=== PATIENT | male | born 1950 | race Caucasian/White ===

== ENCOUNTER 2018-02-14 23:57 | Observation (INO) | payer MEDICARE, SELFPAY ==
[2018-02-14 23:58] VITALS: BP 165/94; PULSE 82; RESP 12; TEMP 36.8; O2SAT 98; BMI 27.4
--- NOTE | 2018-02-14 23:59 | ED.RN ---
CALLED FOR EKG PER RN REQUEST, PULLED OLD EKG'S FOR
[2018-02-15] VITALS (12 sets, daily range): BP systolic 112–159; BP diastolic 70–90; PULSE 56–96; RESP 14–18; TEMP 36.4–36.8; O2SAT 96–100; BMI 26.8
--- NOTE | 2018-02-15 00:16 | RAD_ITS ---
STUDY: X-RAY CHEST REASON FOR EXAM: Male, 67 years old. Chest pain for few days. TECHNIQUE: Single AP portable view of the chest. COMPARISON: 07/29/2015. FINDINGS: No focal infiltrate is seen. There is no demonstrated pleural abnormality. Normal size heart. Normal mediastinum and aurea. Normal visualized pulmonary arteries. There is atherosclerotic tortuosity of the aortic arch and descending thoracic aorta. The thoracic spine is somewhat obscured. Normal visualized ribs, clavicles, and shoulders. There is no demonstrated abnormality of the visualized soft tissue structures of the upper abdomen. RAD/Chest 1 View (Portable) IMPRESSION: No active pulmonary disease. Electronically Signed: Naresh Farris MD at 0:48 EDT Tel , Service support ,
--- NOTE | 2018-02-15 00:16 | EKG12_ITS ---
Test Reason : CP Blood Pressure : / mmHG Vent. Rate : 085 BPM Atrial Rate : 085 BPM P-R Int : 188 ms QRS Dur : 086 ms QT Int : 370 ms P-R-T Axes : 066 008 039 degrees QTc Int : 440 ms Normal sinus rhythm Normal ECG Confirmed by DURAN CORNEJO, HALLIE ([id number]), book editor KAIDEN LUQUE ([id number]) on 02/19/2018 2:13:23 PM Referred By: NETO Confirmed By:HALLIE GARZON MD
[2018-02-15 00:27] LABS: Absolute Lymphocyte Count 1.98 X10^3/ul (0.83-4.51); Absolute Neutrophil Count 3.9 X10^3/uL (2.0-7.7); Basophil# 0.03 X10^3/uL; Basophil% 0.5 % (0-1); Eosinophil# 0.09 X10^3/uL; Eosinophils% 1.4 % (0-5); Hematocrit 40.5 % (40-54); Hemoglobin 14.2 g/dl (13.0-16.5); Lymphocyte # 1.98 X10^3/ul (4.0); Lymphocyte % 30.1 % (19-41); Mean Corp Hgb Conc 35.1 g/gl (32-36); Mean Corpuscular Hgb 29.5 pg (27.0-32.0); Mean Platelet Vol. 10.2 fl (6.2-12.0); Monocyte# 0.59 X10^3/uL; Neutrophil # 3.88 X10^3/uL (2.7-7.7); Neutrophil % 58.8 % (47-70); Platelet Count 232 K/mm3 (150-450); RBC Distribution Width CV 13.3 % (11.6-14.6); RBC Distribution Width SD 40.4 fl (35.1-43.9); Red Blood Count 4.82 M/mm3 (4.6-6.2); White Blood Count 6.6 K/mm3 (4.4-11.0)
[2018-02-15 00:28] LABS: POSITIVE COUNT NO; POSITIVE DIFFERENTIAL NO; POSITIVE MORPHOLOGY NO
[2018-02-15] MEDS: Aspirin 81 MG TAB.CHEW 324 MG PO (00:28)
[2018-02-15 00:39] LABS: Anion Gap 7 (5-15); BUN 16 mg/dL (7-18); Calcium,Total 9.1 mg/dL (8.5-10.1); Chloride 103 mmol/L (98-107); Creatinine, Serum 1.23 mg/dL (0.70-1.30); EST Glomerular Filtration Rate 63 mL/min (>60); Est Glom Filt Rate - Afr Amer 76 mL/min (>60); Estimated Creatinine Clearance 70.61 ml/min; Glucose 119 mg/dL (74-106); Potassium 3.5 mmol/L (3.5-5.1); Sodium Level 141 mmol/L (136-145)
--- NOTE | 2018-02-15 01:36 | EKG12_ITS ---
Test Reason : REPEAT Blood Pressure : / mmHG Vent. Rate : 072 BPM Atrial Rate : 072 BPM P-R Int : 186 ms QRS Dur : 096 ms QT Int : 394 ms P-R-T Axes : 040 002 013 degrees QTc Int : 431 ms Normal sinus rhythm Inferior infarct , age undetermined Abnormal ECG Confirmed by DURAN CORNEJO, HALLIE ([id number]), mapping editor KAIDEN LUUQE ([id number]) on 02/19/2018 2:13:53 PM Referred By: NETO Confirmed By:HALLIE GARZON MD
[2018-02-15] MEDS: Nitroglycerin Oint 1 INCH PACKET 0.5 INCH TRANSDERM. (01:58)
--- NOTE | 2018-02-15 02:04 | ED.VISSUMM ---
- ER Visit Summary Date of Service: 02/15/18 Chief Complaint: Chest pain History of Present Illness: The patient is a 67 M who presents with chest pain. Symptoms began during a stressful event involving his son and the police. He has had constant pain for 2-3 hours. He describes this as pressure-like on the left side of his chest radiating down his left arm. This is associated with nausea and shortness of breath. No exacerbating or relieving factors. He does note that he has been having intermittent chest pain for a couple of weeks. Today was worse. He does have a known history of coronary artery disease but states that he had only 40-50% blockages. He has not had any intervention no stents or bypass. No history of myocardial infarction. Physical Examination: Afebrile vitals are stable Moist mucous membranes Heart regular rate and rhythm Lungs clear Abdomen soft 2+ radial pulses symmetric No edema Test Results: EKG shows normal sinus rhythm at a rate of 85 with PVCs. Repeat EKG unchanged. CBC BMP unremarkable and troponin negative. Chest x-ray shows no acute process. Emergency Department Course and Treatment: Patient was given aspirin and sublingual nitroglycerin. This improved his pain from 8 out of 10 to minimal at only 1 out of 10. Therefore we also ordered topical Nitropaste. Patient discussed with the hospitalist will be admitted. Treatment Plan: [] Disposition: Admit Impression: Chest pain This note was generated with [employer] dictation software. It may contain incorrect words, spelling, and punctuation that were not noted in review of the chart prior to signing ED Disposition - Plan for ED Patient: Chief Complaint: Chest Pain [facility] [Primary Care Provider] -
--- NOTE | 2018-02-15 02:06 | PCM.HP.STD ---
Problem List (1) Benign prostatic hyperplasia Status: Chronic (2) Chronic back pain Status: Chronic (3) mild CAD s/p cath Status: Chronic (4) Osteoarthritis Status: Chronic (5) Gastroesophageal reflux disease Status: Chronic (6) Benign essential hypertension Status: Chronic (7) Asthma Status: Chronic History of Present Illness Date of Admission: 02/15/18 Chief Complaint: Chest pain. The patient is a 67 year old M with past medical history as mentioned above presented to the emergency room because of chest pain. His symptoms started few hours ago when he was sitting on his couch, started having left-sided chest pain, pressure-like pain, 8 out of 10 in severity, radiates to his left side of the neck, associated with mild shortness of breath and nausea, partially relieved with nitroglycerin and without aggravating factors. He mentioned that over the last couple days, he has been having left upper extremity pain. He denied dizziness or lightheadedness. Denies syncope or presyncope. According to the patient, he had a history of cardiac catheterization 4 years ago at outside facility and he was informed that he has 40% narrowing in 1 of his coronaries, no documents available. In the emergency room, his vital signs are stable. His routine blood work was unremarkable. His EKG revealed normal sinus rhythm, normal [place] interval, normal QRS and QTC, no acute ischemic changes. His troponin is negative. Chest x-ray showed no acute infiltrate, consolidation or effusion. He is being admitted for chest pain for evaluation and he is on high risk patient. Past Medical History Past Medical History (Chronic Problems): Chronic Problems Benign prostatic hyperplasia (Chronic) Chronic back pain (Chronic) mild CAD s/p cath (Chronic) Osteoarthritis (Chronic) Gastroesophageal reflux disease (Chronic) Benign essential hypertension (Chronic) Asthma (Chronic) Allergies iodine Allergy (Verified 02/15/18 00:00) Unknown Home Medications: Ambulatory Orders Medication Instructions Recorded Albuterol Inhaler [Ventolin Hfa] 1 - 2 puff INHALATION Q6H PRN PRN 06/20/13 Hydrochlorothiazide [Hctz] 25 mg PO DAILY 06/20/13 Omeprazole [Prilosec] 40 mg PO DAILY 06/20/13 Potassium Chloride [K-Dur] 20 meq PO DAILY 06/20/13 Tamsulosin HCl [Flomax] 0.8 mg PO QHS 06/20/13 Amlodipine [Norvasc] 10 mg PO DAILY #60 tablet 10/24/13 Aspirin [Aspirin, Baby] 81 mg PO DAILY@0800 10/24/13 Pravastatin [Pravachol] 40 mg PO DAILY 10/24/13 Montelukast [Singulair] 10 mg PO DAILY 02/10/15 Pregabalin [Lyrica] 150 mg PO BID 02/10/15 Metoprolol Tartrate [Lopressor 12.5 mg PO BID 02/11/15 (beta eriberto)] Budesonide/Formoterol 160/4.5 2 puff INHALATION BID 07/29/15 [Symbicort 160/4.5 Mcg Inhaler (SP)] Loratadine [Claritin] 10 mg PO DAILY 07/29/15 Finasteride [Proscar] 5 mg PO DAILY 02/15/18 Guaifenesin 400 mg PO Q4H PRN PRN 02/15/18 Meloxicam 7.5 mg PO BID 02/15/18 Tiotropium [place] [Spiriva 18 MCG] 2 puff INHALATION DAILY 02/15/18 traMADol [Ultram (G)] 50 mg PO Q8H PRN PRN 02/15/18 Surgical History: total knee arthroplasty, - - Neck surgery x 2, R elbow surgery and R shoulder surgery. Psychiatric History: No pertinent psych hx Lives: Spouse/ Significant Other Smoking Status: Never smoker Alcohol: None Drugs: None - *Family History Maternal History Items: Heart Disease, Hypertension Paternal History Items: Cancer, Heart Disease Sibling History Items: Heart Disease - CABG Review of Systems Constitutional: Denies: Anorexia, Chills, Fever, Weakness Eyes: Denies: Blurred vision, Double vision, Drainage, Redness HEENT: Denies: Difficulty Hearing, Ear Pain, Eye Pain, Nasal Congestion, Sore Throat Cardiovascular: Reports: Chest Pain, Chest Pressure. Denies: Edema, Heaviness, Light Headedness, Orthopnea, Paroxysmal Noc. Dyspnea, Syncope Respiratory: Reports: Shortness of Breath. Denies: Cough, Pleuritic Pain, Sputum production, Wheezing Gastrointestinal: Reports: Nausea. Denies: Abdominal Pain, Constipation, Diarrhea, Vomiting Genitourinary: Denies: Dysuria, Frequency, Hematuria Musculoskeletal: Denies: Arm Pain, Back Pain, Foot Pain Skin: Denies: Dryness, Rash Neurological: Denies: Balance problems, Double vision, Change in Speech, Slurred speech, Confusion, Focal weakness, Incoordination, Numbness Psychiatric: Denies: Anxiety, Depression Endocrine: Denies: Change in Body Habitus, Polydipsia VTE Information - Inpt Only VTE Present on Admission: No VTE Mechan Device Prophylaxis: None VTE Pharm Prophylaxis ordered?: Yes - Physical Exam General: Alert, Oriented x3, Cooperative, No apparent distress HEENT: Atraumatic, PERRLA, EOMI, Normocephalic Oral: Moist Mucosa, No Gingival or Mucosal Lesions/ Ulcerations Neck: Supple, No JVD, Negative Carotid Bruits, Trachea Midline, Thyroid Normal Size and Texture Lungs: Clear to auscultation, No rhonchi, No wheeze, No rales, Diminished Cardiovascular: Regular rate, Regular Rhythm, Normal S1, Normal S2, No murmurs Abdomen: Bowel Sounds Present, Soft, Non Tender, Non-Distended, No Hepato-splenomegaly Extremities: No clubbing, No cyanosis, No edema Skin: No rashes, No breakdown Lymphatic: No Cervical, Supraclavicular, or Inguinal Adenopathy Neurological: Cranial nerves II-XII grossly intact, Motor Exam 5/5 strength throughout Psych/Mental Status: Normal Affect, Appropriate, Alert and oriented to time, place, person, mood and affect Vital Signs Temp Pulse Resp BP Pulse Ox 98.2 F 67 14 122/79 H 96 02/14/18 23:58 02/15/18 02:01 02/15/18 02:01 02/15/18 02:01 02/15/18 02:01 Oxygen Flow Rate (L/min) 2 Oxygen Delivery Method Nasal Cannula Weight: 219 lb 9.286 oz Body Mass Index (BMI) 27.4 Finger Stick Blood Glucose 113 Laboratory Tests Past 24 Hrs 02/15/18 02/15/18 00:05 00:05 WBC 6.6 RBC 4.82 Hgb 14.2 Hct 40.5 MCV 84.0 MCH 29.5 MCHC 35.1 RDW 13.3 RDW Differential 40.4 Plt Count 232 MPV 10.2 Immature Gran % (Auto) 0.200 Neut % (Auto) 58.8 Lymph % (Auto) 30.1 [place] % (Auto) 9.0 Eos % (Auto) 1.4 Baso % (Auto) 0.5 Absolute Neuts (auto) 3.9 Absolute Lymphs (auto) 1.98 Total Counted Not Reportable Sodium 141 Potassium 3.5 Chloride 103 Carbon Dioxide 31.0 Anion Gap 7 BUN 16 Creatinine 1.23 Estim Creat Clear Calc 70.61 Est GFR (MDRD) Af Amer 76 Est GFR (MDRD) Non-Af 63 BUN/Creatinine Ratio 13.0 Glucose 119 H Calcium 9.1 Troponin I < 0.015 Clinical Impression(s) from Imaging Studies Chest X-Ray 02/15/18 00:16 IMPRESSION: No active pulmonary disease. Electronically Signed: Naresh Farris MD at 0:48 EDT Tel , Service support , Assessment/Plan This is a 67 years old male patient presented to the emergency room because of chest pain and he is being admitted for evaluation. #1 chest pain: It is typical chest pain, high-risk patient. Risk factors are history of CAD without interventions, hypertension, hyperlipidemia. His initial EKG was unremarkable, no acute ischemic changes. Troponin is negative. Chest x-ray without acute findings. Vital signs are stable. Plan: Admit to PCU for observation, cardiac monitoring, serial cardiac enzymes, repeat EKG tomorrow morning, continue nitroglycerin patch, IV morphine as needed for pain, IV fluids, nuclear stress test tomorrow morning if cardiac enzymes are negative, continue aspirin, metoprolol and statins. #2 CAD: Without history of interventions, no stents or bypass surgery. Plan as above, continue aspirin, statins and beta blockers. #3 hypertension: Blood pressure stable, continue Norvasc, HCTZ and metoprolol. #4 hyperlipidemia: Continue statins. #5 benign prostatic hypertrophy: Continue Flomax and Proscar. #6 asthma/COPD: Clinically stable, start albuterol nebulizer as needed, continue Symbicort and Spiriva #7 chronic back pain: Continue Lyrica and as needed tramadol. #8 DVT prophylaxis: Subcu Lovenox. This note was generated with [employer] software. It may contain incorrect words, spelling, and punctuation that were not noted in checking the note before signing. Code Visit OBSV E&M: 83233 Initial observation care L3
--- NOTE | 2018-02-15 02:10 | HP.PCM_ITS ---
Problem List (1) Benign prostatic hyperplasia Status: Chronic (2) Chronic back pain Status: Chronic (3) mild CAD s/p cath Status: Chronic (4) Osteoarthritis Status: Chronic (5) Gastroesophageal reflux disease Status: Chronic (6) Benign essential hypertension Status: Chronic (7) Asthma Status: Chronic History of Present Illness Date of Admission: 02/15/18 Chief Complaint: Chest pain. The patient is a 67 year old M with past medical history as mentioned above presented to the emergency room because of chest pain. His symptoms started few hours ago when he was sitting on his couch, started having left-sided chest pain, pressure-like pain, 8 out of 10 in severity, radiates to his left side of the neck, associated with mild shortness of breath and nausea, partially relieved with nitroglycerin and without aggravating factors. He mentioned that over the last couple days, he has been having left upper extremity pain. He denied dizziness or lightheadedness. Denies syncope or presyncope. According to the patient, he had a history of cardiac catheterization 4 years ago at outside facility and he was informed that he has 40% narrowing in 1 of his coronaries, no documents available. In the emergency room, his vital signs are stable. His routine blood work was unremarkable. His EKG revealed normal sinus rhythm, normal [place] interval, normal QRS and QTC, no acute ischemic changes. His troponin is negative. Chest x-ray showed no acute infiltrate, consolidation or effusion. He is being admitted for chest pain for evaluation and he is on high risk patient. Past Medical History Past Medical History (Chronic Problems): Chronic Problems Benign prostatic hyperplasia (Chronic) Chronic back pain (Chronic) mild CAD s/p cath (Chronic) Osteoarthritis (Chronic) Gastroesophageal reflux disease (Chronic) Benign essential hypertension (Chronic) Asthma (Chronic) Allergies iodine Allergy (Verified 02/15/18 00:00) Unknown Home Medications: Ambulatory Orders Medication Instructions Recorded Albuterol Inhaler [Ventolin Hfa] 1 - 2 puff INHALATION Q6H PRN PRN 06/20/13 Hydrochlorothiazide [Hctz] 25 mg PO DAILY 06/20/13 Omeprazole [Prilosec] 40 mg PO DAILY 06/20/13 Potassium Chloride [K-Dur] 20 meq PO DAILY 06/20/13 Tamsulosin HCl [Flomax] 0.8 mg PO QHS 06/20/13 Amlodipine [Norvasc] 10 mg PO DAILY #60 tablet 10/24/13 Aspirin [Aspirin, Baby] 81 mg PO DAILY@0800 10/24/13 Pravastatin [Pravachol] 40 mg PO DAILY 10/24/13 Montelukast [Singulair] 10 mg PO DAILY 02/10/15 Pregabalin [Lyrica] 150 mg PO BID 02/10/15 Metoprolol Tartrate [Lopressor 12.5 mg PO BID 02/11/15 (beta eriberto)] Budesonide/Formoterol 160/4.5 2 puff INHALATION BID 07/29/15 [Symbicort 160/4.5 Mcg Inhaler (SP)] Loratadine [Claritin] 10 mg PO DAILY 07/29/15 Finasteride [Proscar] 5 mg PO DAILY 02/15/18 Guaifenesin 400 mg PO Q4H PRN PRN 02/15/18 Meloxicam 7.5 mg PO BID 02/15/18 Tiotropium [place] [Spiriva 18 MCG] 2 puff INHALATION DAILY 02/15/18 traMADol [Ultram (G)] 50 mg PO Q8H PRN PRN 02/15/18 Surgical History: total knee arthroplasty, - - Neck surgery x 2, R elbow surgery and R shoulder surgery. Psychiatric History: No pertinent psych hx Lives: Spouse/ Significant Other Smoking Status: Never smoker Alcohol: None Drugs: None - *Family History Maternal History Items: Heart Disease, Hypertension Paternal History Items: Cancer, Heart Disease Sibling History Items: Heart Disease - CABG Review of Systems Constitutional: Denies: Anorexia, Chills, Fever, Weakness Eyes: Denies: Blurred vision, Double vision, Drainage, Redness HEENT: Denies: Difficulty Hearing, Ear Pain, Eye Pain, Nasal Congestion, Sore Throat Cardiovascular: Reports: Chest Pain, Chest Pressure. Denies: Edema, Heaviness, Light Headedness, Orthopnea, Paroxysmal Noc. Dyspnea, Syncope Respiratory: Reports: Shortness of Breath. Denies: Cough, Pleuritic Pain, Sputum production, Wheezing Gastrointestinal: Reports: Nausea. Denies: Abdominal Pain, Constipation, Diarrhea, Vomiting Genitourinary: Denies: Dysuria, Frequency, Hematuria Musculoskeletal: Denies: Arm Pain, Back Pain, Foot Pain Skin: Denies: Dryness, Rash Neurological: Denies: Balance problems, Double vision, Change in Speech, Slurred speech, Confusion, Focal weakness, Incoordination, Numbness Psychiatric: Denies: Anxiety, Depression Endocrine: Denies: Change in Body Habitus, Polydipsia VTE Information - Inpt Only VTE Present on Admission: No VTE Mechan Device Prophylaxis: None VTE Pharm Prophylaxis ordered?: Yes - Physical Exam General: Alert, Oriented x3, Cooperative, No apparent distress HEENT: Atraumatic, PERRLA, EOMI, Normocephalic Oral: Moist Mucosa, No Gingival or Mucosal Lesions/ Ulcerations Neck: Supple, No JVD, Negative Carotid Bruits, Trachea Midline, Thyroid Normal Size and Texture Lungs: Clear to auscultation, No rhonchi, No wheeze, No rales, Diminished Cardiovascular: Regular rate, Regular Rhythm, Normal S1, Normal S2, No murmurs Abdomen: Bowel Sounds Present, Soft, Non Tender, Non-Distended, No Hepato- splenomegaly Extremities: No clubbing, No cyanosis, No edema Skin: No rashes, No breakdown Lymphatic: No Cervical, Supraclavicular, or Inguinal Adenopathy Neurological: Cranial nerves II-XII grossly intact, Motor Exam 5/5 strength throughout Psych/Mental Status: Normal Affect, Appropriate, Alert and oriented to time, place, person, mood and affect Vital Signs Temp Pulse Resp BP Pulse Ox 98.2 F 67 14 122/79 H 96 02/14/18 23:58 02/15/18 02:01 02/15/18 02:01 02/15/18 02:01 02/15/18 02:01 Oxygen Flow Rate (L/min) 2 Oxygen Delivery Method Nasal Cannula Weight: 219 lb 9.286 oz Body Mass Index (BMI) 27.4 Finger Stick Blood Glucose 113 Laboratory Tests Past 24 Hrs 02/15/18 02/15/18 00:05 00:05 WBC 6.6 RBC 4.82 Hgb 14.2 Hct 40.5 MCV 84.0 MCH 29.5 MCHC 35.1 RDW 13.3 RDW Differential 40.4 Plt Count 232 MPV 10.2 Immature Gran % (Auto) 0.200 Neut % (Auto) 58.8 Lymph % (Auto) 30.1 [place] % (Auto) 9.0 Eos % (Auto) 1.4 Baso % (Auto) 0.5 Absolute Neuts (auto) 3.9 Absolute Lymphs (auto) 1.98 Total Counted Not Reportable Sodium 141 Potassium 3.5 Chloride 103 Carbon Dioxide 31.0 Anion Gap 7 BUN 16 Creatinine 1.23 Estim Creat Clear Calc 70.61 Est GFR (MDRD) Af Amer 76 Est GFR (MDRD) Non-Af 63 BUN/Creatinine Ratio 13.0 Glucose 119 H Calcium 9.1 Troponin I < 0.015 Clinical Impression(s) from Imaging Studies Chest X-Ray 02/15/18 00:16 IMPRESSION: No active pulmonary disease. Electronically Signed: Naresh Farris MD at 0:48 EDT Tel , Service support , Assessment/Plan This is a 67 years old male patient presented to the emergency room because of chest pain and he is being admitted for evaluation. #1 chest pain: It is typical chest pain, high-risk patient. Risk factors are history of CAD without interventions, hypertension, hyperlipidemia. His initial EKG was unremarkable, no acute ischemic changes. Troponin is negative. Chest x-ray without acute findings. Vital signs are stable. Plan: Admit to PCU for observation, cardiac monitoring, serial cardiac enzymes, repeat EKG tomorrow morning, continue nitroglycerin patch, IV morphine as needed for pain, IV fluids, nuclear stress test tomorrow morning if cardiac enzymes are negative , continue aspirin, metoprolol and statins. #2 CAD: Without history of interventions, no stents or bypass surgery. Plan as above, continue aspirin, statins and beta blockers. #3 hypertension: Blood pressure stable, continue Norvasc, HCTZ and metoprolol. #4 hyperlipidemia: Continue statins. #5 benign prostatic hypertrophy: Continue Flomax and Proscar. #6 asthma/COPD: Clinically stable, start albuterol nebulizer as needed, continue Symbicort and Spiriva #7 chronic back pain: Continue Lyrica and as needed tramadol. #8 DVT prophylaxis: Subcu Lovenox. This note was generated with [employer] software. It may contain incorrect words, spelling, and punctuation that were not noted in checking the note before signing. Code Visit OBSV E&M: 97174 Initial observation care L3
--- NOTE | 2018-02-15 02:29 | NURSING ---
Called Marysol JONES at this time and informed that PCU is ready for admission
[2018-02-15] MEDS: 0.9% Normal Saline 1,000 ML 75 ML IV (03:26)
--- NOTE | 2018-02-15 05:55 | EKG12_ITS ---
Test Reason : REPEAT CP Blood Pressure : / mmHG Vent. Rate : 059 BPM Atrial Rate : 059 BPM P-R Int : 190 ms QRS Dur : 096 ms QT Int : 426 ms P-R-T Axes : 048 007 026 degrees QTc Int : 421 ms Sinus bradycardia Otherwise normal ECG When compared with ECG of 15-FEB-2018 01:23, MANUAL COMPARISON REQUIRED, DATA IS UNCONFIRMED Confirmed by DURAN CORNEJO, HALLIE ([id number]), medical transcription editor KAIDEN LUQUE ([id number]) on 02/19/2018 3:07:07 PM Referred By: MANA Confirmed By:HALLIE GARZON MD
[2018-02-15] MEDS: Aspirin 81 MG TAB.CHEW PO (06:07)
[2018-02-15 06:18] LABS: Absolute Neutrophil Count 2.9 X10^3/uL (2.0-7.7); Basophil# 0.01 X10^3/uL; Basophil% 0.2 % (0-1); Eosinophil# 0.06 X10^3/uL; Eosinophils% 1.1 % (0-5); Hematocrit 39.1 % (40-54); Hemoglobin 12.9 g/dl (13.0-16.5); Lymphocyte % 35.8 % (19-41); Mean Corpuscular Hgb 28.2 pg (27.0-32.0); Mean Corpuscular Volume 85.6 fL (80-94); Mean Platelet Vol. 9.9 fl (6.2-12.0); Monocyte# 0.46 X10^3/uL; Monocyte% 8.7 % (0-10); Neutrophil # 2.88 X10^3/uL (2.7-7.7); Neutrophil % 54.2 % (47-70); Platelet Count 198 K/mm3 (150-450); RBC Distribution Width CV 13.4 % (11.6-14.6); RBC Distribution Width SD 41.8 fl (35.1-43.9); Red Blood Count 4.57 M/mm3 (4.6-6.2); White Blood Count 5.3 K/mm3 (4.4-11.0)
[2018-02-15 06:23] LABS: POSITIVE COUNT NO; POSITIVE DIFFERENTIAL NO; POSITIVE MORPHOLOGY NO
[2018-02-15 06:29] LABS: International Normalized Ratio 1.1; Prothrombin Time (Protime)PT. 14.5 SECONDS (11.7-14.9)
[2018-02-15 06:34] LABS: Anion Gap 6 (5-15); BUN 18 mg/dL (7-18); Calcium,Total 8.5 mg/dL (8.5-10.1); Chloride 105 mmol/L (98-107); Creatinine, Serum 0.95 mg/dL (0.70-1.30); EST Glomerular Filtration Rate 84 mL/min (>60); Est Glom Filt Rate - Afr Amer 102 mL/min (>60); Estimated Creatinine Clearance 91.42 ml/min; Glucose 103 mg/dL (74-106); Potassium 3.4 mmol/L (3.5-5.1); Sodium Level 141 mmol/L (136-145)
--- NOTE | 2018-02-15 06:35 | NURSING ---
Patient taken down for stress test by KEVIN Sommer at this time. Pt IV SL at this time. Pt denies CP at the time taken down - some neck pain that is chronic.
--- NOTE | 2018-02-15 08:59 | STRESSREP ---
Stress Test Report Pharmacologic myocardial perfusion stress test. 67-year-old man with a history of chest pain. Medications Norvasc aspirin Lovenox metoprolol Pravachol. Stress protocol: Resting EKG demonstrates normal sinus rhythm with a rate of 61 bpm normal intervals and noted resting blood pressure is 138/80 mmHg. 0.4 mg of regadenoson was infused per usual protocol followed by rapid intravenous saline flush injection continuous EKG monitoring was performed the patient maintained sinus rhythm throughout the recording. At rest there were no ST or T-wave changes noted suggest abnormal flow reserve at peak infusion no ST or T-wave changes were noted suggest abnormal flow reserve. No clinical angina was noted. The maximum heart rate was 112 beats minute which was 72% of maximum predicted heart rate. Resting blood pressure is 138/80 mmHg. Myocardial perfusion protocol. 14.1 mCi of technetium 99m sestamibi was injected at rest. 0.4 mg of adenosine was infused per usual protocol peak infusion 44.4 mCi sestamibi was injected stress images were obtained stress and rest images were reconstructed and compared in the short axis vertical long horizontal long axis. Gated images were also obtained for next Perfusion SPECT analysis: Review of the stress images demonstrate normal uptake of tracer noted in all areas of the myocardium. The resting images similarly demonstrate normal uptake of tracer noted in all areas of myocardium. No areas of reversibility are noted suggest ischemia there is mild thinning noted of the apex. Gated SPECT analysis: The gated ejection fraction is noted to be 61%. Conclusion: Normal pharmacologic myocardial perfusion stress test. Preserved ejection fraction.
[2018-02-15] MEDS: hydroCHLOROthiazide 25 MG Tablet PO (09:09)
[2018-02-15] MEDS: Loratadine 10 MG Tablet PO (09:09)
[2018-02-15] MEDS: Metoprolol Tartrate 25 MG Tablet 12.5 MG PO (09:09)
[2018-02-15] MEDS: Montelukast 10 MG Tablet PO (09:10)
[2018-02-15] MEDS: amLODIPine 10 MG Tablet PO (09:10)
[2018-02-15] MEDS: Pantoprazole Sodium 40 MG Tablet PO (09:10)
[2018-02-15] MEDS: Finasteride 5 MG Tablet PO (09:10)
[2018-02-15] MEDS: Pregabalin 75 MG Capsule 150 MG PO (09:13)
--- NOTE | 2018-02-15 11:16 | PCM.DC.SUM ---
Discharge Date and Diagnosis Date of Admission: 02/15/18 Date of Discharge: 02/15/18 - Primary Discharge Diagnosis Chest pain - Secondary Discharge Diagnosis Chronic Problems Benign prostatic hyperplasia (Chronic) Chronic back pain (Chronic) mild CAD s/p cath (Chronic) Osteoarthritis (Chronic) Gastroesophageal reflux disease (Chronic) Benign essential hypertension (Chronic) Asthma (Chronic) Hospital Course and Treatment Imaging Results: 02/15/18 05:55 Nuclear Stress Test - Chemical [NM] AM (NON MEDS) Diagnostic Data Chest X-Ray 02/15/18 00:16 IMPRESSION: No active pulmonary disease. Electronically Signed: Naresh Farris MD at 0:48 EDT Tel , Service support , Laboratory Tests 02/15/18 02/15/18 02/15/18 00:05 00:05 03:28 WBC 6.6 RBC 4.82 Hgb 14.2 Hct 40.5 MCV 84.0 MCH 29.5 MCHC 35.1 RDW 13.3 RDW Differential 40.4 Plt Count 232 MPV 10.2 Immature Gran % (Auto) 0.200 Neut % (Auto) 58.8 Lymph % (Auto) 30.1 [place] % (Auto) 9.0 Eos % (Auto) 1.4 Baso % (Auto) 0.5 Absolute Neuts (auto) 3.9 Absolute Lymphs (auto) 1.98 Total Counted Not Reportable PT INR APTT Sodium 141 Potassium 3.5 Chloride 103 Carbon Dioxide 31.0 Anion Gap 7 BUN 16 Creatinine 1.23 Estim Creat Clear Calc 70.61 Est GFR (MDRD) Af Amer 76 Est GFR (MDRD) Non-Af 63 BUN/Creatinine Ratio 13.0 Glucose 119 H Calcium 9.1 Troponin I < 0.015 < 0.015 02/15/18 02/15/18 02/15/18 05:54 05:54 05:54 WBC 5.3 RBC 4.57 L Hgb 12.9 L Hct 39.1 L MCV 85.6 MCH 28.2 MCHC 33.0 RDW 13.4 RDW Differential 41.8 Plt Count 198 MPV 9.9 Immature Gran % (Auto) 0.000 Neut % (Auto) 54.2 Lymph % (Auto) 35.8 [place] % (Auto) 8.7 Eos % (Auto) 1.1 Baso % (Auto) 0.2 Absolute Neuts (auto) 2.9 Absolute Lymphs (auto) 1.90 Total Counted Not Reportable PT 14.5 INR 1.1 APTT 30.0 Sodium Potassium Chloride Carbon Dioxide Anion Gap BUN Creatinine Estim Creat Clear Calc Est GFR (MDRD) Af Amer Est GFR (MDRD) Non-Af BUN/Creatinine Ratio Glucose Calcium Troponin I < 0.015 02/15/18 05:54 WBC RBC Hgb Hct MCV MCH MCHC RDW RDW Differential Plt Count MPV Immature Gran % (Auto) Neut % (Auto) Lymph % (Auto) [place] % (Auto) Eos % (Auto) Baso % (Auto) Absolute Neuts (auto) Absolute Lymphs (auto) Total Counted PT INR APTT Sodium 141 Potassium 3.4 L Chloride 105 Carbon Dioxide 30.0 Anion Gap 6 BUN 18 Creatinine 0.95 Estim Creat Clear Calc 91.42 Est GFR (MDRD) Af Amer 102 Est GFR (MDRD) Non-Af 84 BUN/Creatinine Ratio 19.0 Glucose 103 Calcium 8.5 Troponin I Operations: None Procedures: Stress test Summary of Care Provided: Chato a 67-year-old male with a history of hypertension, asthma CAD status post cath and no stents placed, BPH, GERD and osteoarthritis. He was admitted by the ED in the early hours of's 02/15/2018 with a complaint of chest pain. Chest pain had started a few hours prior to admission and was left-sided, pressure-like, 8 out of 10 in severity, radiating to the left side of his neck and assisted with mild shortness of breath and nausea. He had no dizziness or lightheadedness and denied any syncope or presyncope. He had a cardiac cath 4 years ago at an outside hospital and was found that he had about 40% narrowing in 1 of his coronaries which specific one is not clear. On admission vitals were stable and EKG shows sinus rhythm with no acute ST changes. Troponins were negative and chest x-ray showed no acute pathology. He was admitted to be worked up for chest pain. Patient had a stress test on 02/15/2018 which was negative, with normal pharmacologic myocardial perfusion stress test and preserved ejection fraction.. He remained stable and was due to be discharged home to follow-up with his primary care doctor and information security systems instructor. Patient seen and examined prior to discharge. He had just returned from cardiac cath and had no complaints. Chest pain not resolved. He denied any fever chills, any cough or chest pain, shortness of breath, abdominal pain, diarrhea vomiting. Review of systems otherwise negative. On examination: Vital signs and labs reviewed. General: Alert, Oriented x3, Cooperative, No apparent distress HEENT: Atraumatic, PERRLA, EOMI, Normocephalic Oral: Moist Mucosa, No Gingival or Mucosal Lesions/ Ulcerations Neck: Supple, No JVD, Negative Carotid Bruits, Trachea Midline, Thyroid Normal Size and Texture Lungs: Clear to auscultation, No rhonchi, No wheeze, No rales, Diminished Cardiovascular: Regular rate, Regular Rhythm, Normal S1, Normal S2, No murmurs Abdomen: Bowel Sounds Present, Soft, Non Tender, Non-Distended, No Hepato-splenomegaly Extremities: No clubbing, No cyanosis, No edema Skin: No rashes, No breakdown Lymphatic: No Cervical, Supraclavicular, or Inguinal Adenopathy Neurological: Cranial nerves II-XII grossly intact, Motor Exam 5/5 strength throughout Psych/Mental Status: Normal Affect, Appropriate, Alert and oriented to time, place, person, mood and affect Home medications reviewed and reconciled. Patient stable and is to be discharged home to follow-up with his primary care doctor and information security systems instructor. Discharge Diet: Low fat/ Low Cholesterol Discharge Activity: Return to Normal Activity May resume sexual activity in: No Restrictions Weight Bearing Status: Weight bearing as tolerated Call your doctor if you observe: Shortness of breath, Dizziness, Chest pain, Increased palpitations (irregular heartbeat) Home Medications: Medications to take at Discharge Albuterol Inhaler [Ventolin Hfa] 1 - 2 puff INHALATION Q6H PRN PRN 06/20/13 Hydrochlorothiazide [Hctz] 25 mg PO DAILY 06/20/13 Omeprazole [Prilosec] 40 mg PO DAILY 06/20/13 Potassium Chloride [K-Dur] 20 meq PO DAILY 06/20/13 Tamsulosin HCl [Flomax] 0.8 mg PO QHS 06/20/13 Amlodipine [Norvasc] 10 mg PO DAILY #60 tablet 10/24/13 Aspirin [Aspirin, Baby] 81 mg PO DAILY@0800 10/24/13 Pravastatin [Pravachol] 40 mg PO DAILY 10/24/13 Montelukast [Singulair] 10 mg PO DAILY 02/10/15 Pregabalin [Lyrica] 150 mg PO BID 02/10/15 Metoprolol Tartrate [Lopressor (beta eriberto)] 12.5 mg PO BID 02/11/15 Budesonide/Formoterol 160/4.5 [Symbicort 160/4.5 Mcg Inhaler (SP)] 2 puff INHALATION BID 07/29/15 Loratadine [Claritin] 10 mg PO DAILY 07/29/15 Finasteride [Proscar] 5 mg PO DAILY 02/15/18 Guaifenesin 400 mg PO Q4H PRN PRN 02/15/18 Meloxicam 7.5 mg PO BID 02/15/18 Tiotropium [place] [Spiriva 18 MCG] 2 puff INHALATION DAILY 02/15/18 traMADol [Ultram (G)] 50 mg PO Q8H PRN PRN 02/15/18 [facility] Care Physician: [facility] [Primary Care Provider] - Please follow up with your Primary Care Physician in: one week Additional Instructions: Please follow up with your information security systems instructor in one week. Disposition: Home Minutes spent on discharge:: 40 Patient Condition:: Stable Medical Necessity - Tobacco Use Smoking Status: Never smoker Meaningful Use Info Meaningful Use Diagnoses (Choose all that apply): None applicable Code Visit Inpatient E&M: 88736 Disch Hosp
--- NOTE | 2018-02-15 11:20 | DS.PCM_ITS ---
Discharge Date and Diagnosis Date of Admission: 02/15/18 Date of Discharge: 02/15/18 - Primary Discharge Diagnosis Chest pain - Secondary Discharge Diagnosis Chronic Problems Benign prostatic hyperplasia (Chronic) Chronic back pain (Chronic) mild CAD s/p cath (Chronic) Osteoarthritis (Chronic) Gastroesophageal reflux disease (Chronic) Benign essential hypertension (Chronic) Asthma (Chronic) Hospital Course and Treatment Imaging Results: 02/15/18 05:55 Nuclear Stress Test - Chemical [NM] AM (NON MEDS) Diagnostic Data Chest X-Ray 02/15/18 00:16 IMPRESSION: No active pulmonary disease. Electronically Signed: Naresh Farris MD at 0:48 EDT Tel , Service support , Laboratory Tests 02/15/18 02/15/18 02/15/18 00:05 00:05 03:28 WBC 6.6 RBC 4.82 Hgb 14.2 Hct 40.5 MCV 84.0 MCH 29.5 MCHC 35.1 RDW 13.3 RDW Differential 40.4 Plt Count 232 MPV 10.2 Immature Gran % (Auto) 0.200 Neut % (Auto) 58.8 Lymph % (Auto) 30.1 [place] % (Auto) 9.0 Eos % (Auto) 1.4 Baso % (Auto) 0.5 Absolute Neuts (auto) 3.9 Absolute Lymphs (auto) 1.98 Total Counted Not Reportable PT INR APTT Sodium 141 Potassium 3.5 Chloride 103 Carbon Dioxide 31.0 Anion Gap 7 BUN 16 Creatinine 1.23 Estim Creat Clear Calc 70.61 Est GFR (MDRD) Af Amer 76 Est GFR (MDRD) Non-Af 63 BUN/Creatinine Ratio 13.0 Glucose 119 H Calcium 9.1 Troponin I < 0.015 < 0.015 02/15/18 02/15/18 02/15/18 05:54 05:54 05:54 WBC 5.3 RBC 4.57 L Hgb 12.9 L Hct 39.1 L MCV 85.6 MCH 28.2 MCHC 33.0 RDW 13.4 RDW Differential 41.8 Plt Count 198 MPV 9.9 Immature Gran % (Auto) 0.000 Neut % (Auto) 54.2 Lymph % (Auto) 35.8 [place] % (Auto) 8.7 Eos % (Auto) 1.1 Baso % (Auto) 0.2 Absolute Neuts (auto) 2.9 Absolute Lymphs (auto) 1.90 Total Counted Not Reportable PT 14.5 INR 1.1 APTT 30.0 Sodium Potassium Chloride Carbon Dioxide Anion Gap BUN Creatinine Estim Creat Clear Calc Est GFR (MDRD) Af Amer Est GFR (MDRD) Non-Af BUN/Creatinine Ratio Glucose Calcium Troponin I < 0.015 02/15/18 05:54 WBC RBC Hgb Hct MCV MCH MCHC RDW RDW Differential Plt Count MPV Immature Gran % (Auto) Neut % (Auto) Lymph % (Auto) [place] % (Auto) Eos % (Auto) Baso % (Auto) Absolute Neuts (auto) Absolute Lymphs (auto) Total Counted PT INR APTT Sodium 141 Potassium 3.4 L Chloride 105 Carbon Dioxide 30.0 Anion Gap 6 BUN 18 Creatinine 0.95 Estim Creat Clear Calc 91.42 Est GFR (MDRD) Af Amer 102 Est GFR (MDRD) Non-Af 84 BUN/Creatinine Ratio 19.0 Glucose 103 Calcium 8.5 Troponin I Operations: None Procedures: Stress test Summary of Care Provided: Chato a 67-year-old male with a history of hypertension, asthma CAD status post cath and no stents placed, BPH, GERD and osteoarthritis. He was admitted by the ED in the early hours of's 02/15/2018 with a complaint of chest pain. Chest pain had started a few hours prior to admission and was left-sided, pressure-like, 8 out of 10 in severity, radiating to the left side of his neck and assisted with mild shortness of breath and nausea. He had no dizziness or lightheadedness and denied any syncope or presyncope. He had a cardiac cath 4 years ago at an outside hospital and was found that he had about 40% narrowing in 1 of his coronaries which specific one is not clear. On admission vitals were stable and EKG shows sinus rhythm with no acute ST changes. Troponins were negative and chest x-ray showed no acute pathology. He was admitted to be worked up for chest pain. Patient had a stress test on 02/15/2018 which was negative, with normal pharmacologic myocardial perfusion stress test and preserved ejection fraction.. He remained stable and was due to be discharged home to follow-up with his primary care doctor and cleat feeder. Patient seen and examined prior to discharge. He had just returned from cardiac cath and had no complaints. Chest pain not resolved. He denied any fever chills, any cough or chest pain, shortness of breath, abdominal pain, diarrhea vomiting. Review of systems otherwise negative. On examination: Vital signs and labs reviewed. General: Alert, Oriented x3, Cooperative, No apparent distress HEENT: Atraumatic, PERRLA, EOMI, Normocephalic Oral: Moist Mucosa, No Gingival or Mucosal Lesions/ Ulcerations Neck: Supple, No JVD, Negative Carotid Bruits, Trachea Midline, Thyroid Normal Size and Texture Lungs: Clear to auscultation, No rhonchi, No wheeze, No rales, Diminished Cardiovascular: Regular rate, Regular Rhythm, Normal S1, Normal S2, No murmurs Abdomen: Bowel Sounds Present, Soft, Non Tender, Non-Distended, No Hepato- splenomegaly Extremities: No clubbing, No cyanosis, No edema Skin: No rashes, No breakdown Lymphatic: No Cervical, Supraclavicular, or Inguinal Adenopathy Neurological: Cranial nerves II-XII grossly intact, Motor Exam 5/5 strength throughout Psych/Mental Status: Normal Affect, Appropriate, Alert and oriented to time, place, person, mood and affect Home medications reviewed and reconciled. Patient stable and is to be discharged home to follow-up with his primary care doctor and cleat feeder. Discharge Diet: Low fat/ Low Cholesterol Discharge Activity: Return to Normal Activity May resume sexual activity in: No Restrictions Weight Bearing Status: Weight bearing as tolerated Call your doctor if you observe: Shortness of breath, Dizziness, Chest pain, Increased palpitations (irregular heartbeat) Home Medications: Medications to take at Discharge Albuterol Inhaler [Ventolin Hfa] 1 - 2 puff INHALATION Q6H PRN PRN 06/20/13 Hydrochlorothiazide [Hctz] 25 mg PO DAILY 06/20/13 Omeprazole [Prilosec] 40 mg PO DAILY 06/20/13 Potassium Chloride [K-Dur] 20 meq PO DAILY 06/20/13 Tamsulosin HCl [Flomax] 0.8 mg PO QHS 06/20/13 Amlodipine [Norvasc] 10 mg PO DAILY #60 tablet 10/24/13 Aspirin [Aspirin, Baby] 81 mg PO DAILY@0800 10/24/13 Pravastatin [Pravachol] 40 mg PO DAILY 10/24/13 Montelukast [Singulair] 10 mg PO DAILY 02/10/15 Pregabalin [Lyrica] 150 mg PO BID 02/10/15 Metoprolol Tartrate [Lopressor (beta eriberto)] 12.5 mg PO BID 02/11/15 Budesonide/Formoterol 160/4.5 [Symbicort 160/4.5 Mcg Inhaler (SP)] 2 puff INHALATION BID 07/29/15 Loratadine [Claritin] 10 mg PO DAILY 07/29/15 Finasteride [Proscar] 5 mg PO DAILY 02/15/18 Guaifenesin 400 mg PO Q4H PRN PRN 02/15/18 Meloxicam 7.5 mg PO BID 02/15/18 Tiotropium [place] [Spiriva 18 MCG] 2 puff INHALATION DAILY 02/15/18 traMADol [Ultram (G)] 50 mg PO Q8H PRN PRN 02/15/18 Primary Care Physician: [facility] [Primary Care Provider] - Please follow up with your Primary Care Physician in: one week Additional Instructions: Please follow up with your cleat feeder in one week. Disposition: Home Minutes spent on discharge:: 40 Patient Condition:: Stable Medical Necessity - Tobacco Use Smoking Status: Never smoker Meaningful Use Info Meaningful Use Diagnoses (Choose all that apply): None applicable Code Visit Inpatient E&M: 28397 Disch Hosp
--- NOTE | 2018-02-15 11:27 | DCINST_ITS ---
- Discharge Diagnoses Current Active Problems: Current Active and Chronic Problems Benign prostatic hyperplasia (Chronic) Chest pain You will use the following diet at home:: Cardiac Your food should be the consistency of: Regular Your liquids should be the consistency of: Regular/Thin Discharge Activity: Return to Normal Activity May resume sexual activity in: No Restrictions Weight Bearing Status: Weight bearing as tolerated Call your doctor if you observe: Shortness of breath, Dizziness, Chest pain, Increased palpitations (irregular heartbeat) Instructions: ED Chest Pain Atypical Unkn Cause, ED Chest Pain Angina Stable, Warning Signs of a Heart Attack Additional Instructions: Please follow-up with your hvac journeyman in 1-2 weeks. Allergies/Adverse Reactions: Allergies iodine Allergy (Verified 02/15/18 00:00) Unknown Medications to take at Discharge Albuterol Inhaler [Ventolin Hfa] 1 - 2 puff INHALATION Q6H PRN PRN 06/20/13 Hydrochlorothiazide [Hctz] 25 mg PO DAILY 06/20/13 Omeprazole [Prilosec] 40 mg PO DAILY 06/20/13 Potassium Chloride [K-Dur] 20 meq PO DAILY 06/20/13 Tamsulosin HCl [Flomax] 0.8 mg PO QHS 06/20/13 Amlodipine [Norvasc] 10 mg PO DAILY #60 tablet 10/24/13 Aspirin [Aspirin, Baby] 81 mg PO DAILY@0800 10/24/13 Pravastatin [Pravachol] 40 mg PO DAILY 10/24/13 Montelukast [Singulair] 10 mg PO DAILY 02/10/15 Pregabalin [Lyrica] 150 mg PO BID 02/10/15 Metoprolol Tartrate [Lopressor (beta eriberto)] 12.5 mg PO BID 02/11/15 Budesonide/Formoterol 160/4.5 [Symbicort 160/4.5 Mcg Inhaler (SP)] 2 puff INHALATION BID 07/29/15 Loratadine [Claritin] 10 mg PO DAILY 07/29/15 Finasteride [Proscar] 5 mg PO DAILY 02/15/18 Guaifenesin 400 mg PO Q4H PRN PRN 02/15/18 Meloxicam 7.5 mg PO BID 02/15/18 Nitroglycerin [Nitrostat] 0.4 mg SUBLINGUAL Q5M PRN #30 tab 02/15/18 Tiotropium [place] [Spiriva 18 MCG] 2 puff INHALATION DAILY 02/15/18 traMADol [Ultram] 50 mg PO Q8H PRN PRN 02/15/18 The following prescriptions were given: Nitroglycerin [Nitrostat] 0.4 mg SUBLINGUAL Q5M PRN #30 tab PRN Reason: Chest Pain Primary Care Physician: [facility] [Primary Care Provider] - Please follow up with your Primary Care Physician in: one week Test Results: Test results from this visit will be discussed in further detail at your follow- up appointment, if applicable. Proposed Discharge Date: 02/15/18
== END 2018-02-15 13:46 | disposition home or self-care (01) ==
LOC: ED 02-15 00:29 → PCU 02-15 02:22
PROVIDERS: Admitting Provider Hospitalist; Emergency Provider Emergency Medicine; Visit Provider Student in an Organized Health Care Education/Training Program
DX: R07.89 Other chest pain (principal); I25.10 Atherosclerotic heart disease of native coronary artery without angina pectoris; N40.0 Benign prostatic hyperplasia without lower urinary tract symptoms; G89.29 Other chronic pain; M54.9 Dorsalgia, unspecified; M19.90 Unspecified osteoarthritis, unspecified site; K21.9 Gastro-esophageal reflux disease without esophagitis; I10 Essential (primary) hypertension; J45.909 Unspecified asthma, uncomplicated; Z79.899 Other long term (current) drug therapy; Z79.82 Long term (current) use of aspirin; E78.5 Hyperlipidemia, unspecified
CPT/HCPCS: 36415; 71045; 78452; 80048; 84484; 85025; 85610; 85730; 93005; 93017; 96360; 96361; 99218; 99284; A9500; J7030; A4216; G0378; J2785

== ENCOUNTER → 2021-04-07 16:11 | Outpatient (CLI) | payer MEDICARE, SELFPAY ==
[2021-04-07 17:28] LABS: RBC /Synovial Fluid 0.114 10^6/uL (0); Synovial Fld Mononuclear WBC % 8.2 %; Synovial Fld Polynuclear WBC # 14.032 10^3/uL; Synovial Fld Polynuclear WBC % 91.8 %
[2021-04-07 18:45] LABS: AUTO B FLUID DILUENT BKGD CT WBC <0.1 RBC <0.01 (W<.1,R<.01)
[2021-04-07 18:46] LABS: Appearance /Synovial Fluid Cloudy (CLEAR); Body Fluid QC Type(s) BF6Q; Color / Synovial Fluid Red (Pale Yellow); Lymph 6 %; Monocyte /Synovial Fluid 7 %; Neutrophil 87 % (0-25); Source / Synovial Fluid RIGHT KNEE; Synovial Fld Mononuclear WBC # 1.245 10^3/ul
[2021-04-11 16:38] LABS: Pathologist Comment Reviewed
== END ==
PROVIDERS: Visit Provider Specialist
DX: Z96.651 Presence of right artificial knee joint (principal)
CPT/HCPCS: 87015; 87070; 87075; 87101; 87116; 87205; 87206; 89050; 89051

== ENCOUNTER 2021-07-25 14:33 | Outpatient (CLI) | payer MEDICARE, SELFPAY ==
[2021-07-25] MEDS: 0.9% Saline Lock 10 ML Syringe IV (15:00)
[2021-07-25 15:01] VITALS: BP 139/69; PULSE 64; RESP 18; TEMP 36.8; O2SAT 99; BMI 27.8
[2021-07-25 15:30] VITALS: BP 123/68; PULSE 58; RESP 16; TEMP 36.8; O2SAT 96
[2021-07-25 16:33] VITALS: BP 156/74; PULSE 56; RESP 16; TEMP 36.6; O2SAT 98
== END 2021-07-25 16:40 | disposition home or self-care (01) ==
LOC: MS3OUT 14:33 → MS3 14:33
PROVIDERS: Referring Provider Nurse Practitioner Adult Health; Visit Provider Nurse Practitioner Adult Health
DX: Z23 Encounter for immunization (principal); U07.1 COVID-19
CPT/HCPCS: J7050; M0245; Q0245; A4216

== ENCOUNTER 2021-09-05 14:45 | Outpatient (CLI) | payer MEDICARE, SELFPAY ==
[2021-09-05 15:41] LABS: Absolute Lymphocyte Count 1.55 X10^3/uL (0.83-4.51); Absolute Neutrophil Count 6.7 X10^3/uL (2.0-7.7); Basophil# 0.03 X10^3/uL; Basophil% 0.3 % (0-1); Eosinophils% 1.1 % (0-5); Hematocrit 38.2 % (40-54); Hemoglobin 12.4 g/dL (13.0-16.5); Lymphocyte # 1.55 X10^3/ul (0.83-4.51); Lymphocyte % 17.2 % (19-41); Mean Corp Hgb Conc 32.5 g/dL (32-36); Mean Corpuscular Hgb 26.8 pg (27.0-32.0); Mean Corpuscular Volume 82.5 fL (80-94); Mean Platelet Vol. 9.4 fl (6.2-12.0); Monocyte# 0.65 X10^3/uL; Monocyte% 7.2 % (0-10); NRBC Flagged by Analyzer 0 % (0-5); Neutrophil # 6.66 X10^3/uL (2.7-7.7); Platelet Count 311 K/mm3 (150-450); RBC Distribution Width CV 14.7 % (11.6-14.6); RBC Distribution Width SD 44.5 fl (35.1-43.9); Red Blood Count 4.63 M/mm3 (4.6-6.2)
[2021-09-05 15:56] LABS: Erythrocyte Sedimentation Rate 22 mm/hr (0-20)
== END 2021-09-05 23:59 | disposition short-term general hospital (02) ==
LOC: LAB 14:48
PROVIDERS: Visit Provider Physician Assistant Surgical
DX: S82.091D Other fracture of right patella, subsequent encounter for closed fracture with routine healing (principal); M25.561 Pain in right knee
CPT/HCPCS: 36415; 85025; 85652; 86140

== ENCOUNTER 2021-09-19 12:53 | Inpatient (IN) | payer MEDICARE, SELFPAY ==
[2021-09-19] VITALS (19 sets, daily range): BP systolic 103–153; BP diastolic 69–93; PULSE 67–106; RESP 14–18; TEMP 36.9–37.5; O2SAT 92–100; BMI 27.4; BMI 28.4
[2021-09-19] MEDS: Gabapentin 600 MG Tablet PO (13:52)
[2021-09-19] MEDS: Acetaminophen 500 MG Tablet 1000 MG PO ×2 (13:52→22:52)
[2021-09-19] MEDS: Lactated Ringers 1,000 ML 999 ML IV ×2 (13:53→17:31)
[2021-09-19 14:16] LABS: Bedside Glucose 110 mg/dL (70-110)
[2021-09-19] MEDS: Lactated Ringers 1,000 ML 75 ML IV (14:48)
[2021-09-19] MEDS: Cefazolin 2 GM in 0.9% Normal Saline 100 ML IV (15:38)
[2021-09-19] MEDS: dexAMETHasone 10 MG/ML Vial IV (15:45)
[2021-09-19] MEDS: TXA 1000mg in NS100 100ml (IVPB at Incision) 660 MG IV (15:50)
[2021-09-19] MEDS: Vancomycin IV 1,000 MG/20 ML Vial 1000 MG OPERA.SITE (17:20)
[2021-09-19] MEDS: Cefazolin 1 GM/5 ML Vial 2 GM OPERA.SITE (17:20)
[2021-09-19] MEDS: Vancomycin IV 1,000 MG/20 ML Vial 2000 MG OPERA.SITE (17:20)
[2021-09-19] MEDS: TXA 1000mg in NS100 100ml (IVPB at Closure) 660 MG IV (17:41)
--- NOTE | 2021-09-19 18:51 | PCM.HP.BLA ---
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 This is an addendum to his H&P which is already in the chart. Patient was reevaluated in the preoperative area no changes to his H&P are needed.
--- NOTE | 2021-09-19 18:52 | OP.PCM_ITS ---
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 Antibiotic cement had 2 g Ancef, 3 g vancomycin and 4.8 g tobramycin Specimen's removed: 3 separate specimens were sent to microbiology Drains: None Estimated Blood Loss (mL): 300 Fluids Replaced: 1200 mL crystalloid Description of Procedure: Brief history operative indications: 71-year-old r with total knee replacement in November 2020 followed by a extensor mechanism repair in April 2021. Patient had ongoing pain and a slow recovery after a second procedure however he was doing well. He had COVID-19 in middle of July 2021 followed by pneumonia at the end of July 2021. Patient demonstrated increasing knee pain 2 weeks ago. X-rays did show some concerning areas of lucency. After aspirating the knee and confirming infection we agreed to proceed with irrigation debridement with retainment of implants with possible explant and placement of antibiotic spacer depending on implant stability. Which had risks which include but not limited to blood loss, DVTs, PEs, nervous damage, infection, the risk of anesthesia. Patient demonstrate understanding was able to sign informed consent. Medical clearance was obtained. Procedure: On the date of procedure patient's r lower extremity was marked in the preoperative area. The patient was then taken back to the operating room where the patient was placed on the table in the supine position. All bony prominences were identified a well-padded. Anesthesia assumed control of the C-spine and airway and remained controlled throughout the remainder of the procedure. A tourniquet was placed on the r upper thigh and the leg was prepped in a sterile fashion. The surgeon then scrubbed at this time. Upon reentering the room r lower extremity was draped in a standard orthopedic fashion. A timeout was then called and everyone agreed upon the side, the site, the procedure to be performed, patient's identity and antibiotics given. During the timeout we elevated the extremity and the tourniquet was placed up to 250 mmHg with the knee in flexion. A midline skin incision was made using the previous incision and extending it proximally and distally to identify normal tissue planes. Medial and lateral flaps were developed appropriate releases. The standard medial parapatellar arthrotomy was made and the patella was subluxed laterally. At this time an aggressive synovectomy was performed re-creating the medial gutter first, then the suprapatellar pouch than the lateral gutter. Once this was completed the knee was flexed up an osteotome was used to remove the tibial polyethylene. The remainder of the synovium was debrided. The standard deep MCL release was done and the patella scar pad was resected and lateral releases were performed. At this time we were able to get a good look at the anterior portion of the tibial bone interface and there was tunneling centrally with membrane on the undersurface of the tibial implant. Based on this we knew we had to remove the implants and treat for deep infection. We also examined the femoral interface at this time and noted a similar membrane between the bone and implant. At this point we called the family and notified we are proceeding with the explant and placement of antibiotic spacer. Next our attention was directed to the femur. Where flexible osteotomes and TPS saw were used to break up the implant cement interface. This was done both medially and laterally. After this a bone tamp was used to remove the femur component from the end of the bone. This was done with minimal bone loss. At this time attention was now directed towards the proximal tibia. Possible osteotome and TPS saw were then used to break up the proximal tibia implant interface and stacked osteotomes were used to remove the tibial implant. This was done with minimal bone loss. Our attention was then turned to the tibia where the intramedullary canal was reamed to 15 mm and then made a cleanup cut on the tibia, A drop thea was then used to verify the cut. Our attention was then turned back to the femur or the femur intramedullary canal was reamed to 15 mm we used a bur and rongeur to clean up the bone ends with an attempt to preserve all bone possible. We then used a size 5 femoral trial in order to ensure appropriate fit. At this time a 16mm by 6 polyethylene trial was placed and gave us good stability in flexion and extension. We selected these 2 implants. The knee was placed in extension and we began mixing the cement dowels on the back table while my spa assistant manager irrigated the wound with 6 L of normal saline under low-pressure lavage. At this time 1/3 of the cement was placed and 1 batch of cement into dowels were made 1 for the femur and one for the tibia. Once these dowels had cured and the wound was appropriately lavaged we again reexamined the wound and completed the debridement. Dowels were placed in the femur and the tibia for nonbiodegradable to delivery system. At this time additional batch of cement was mixed with one third of the antibiotics on the back table by hand and the tibia was cemented into place. While the cement was cured we mixed our third batch of cement and cemented the femur into place. Knee was placed in extension and cement was allowed to cure. Once the final components were placed and cement had cured a 3-minute Betadine lavage was performed followed by a chlorhexidine lavage was used and the wound was copiously irrigated with normal saline solution and the remainder of the periarticular injection was given. The wound was closed in a layer arzate fashion using #1 vicryl interrupted sutures for the arthrotomy, 2-0 interrupted Vicryl for the subcuticular layer and jose for final skin closure. A sterile compressive dressing was then placed. The patient was then awakened from anesthesia, transferred to the [facility] and transferred to the PACU for recovery. Post op plan DVT ppx: ASA 81mg BID, thigh high compression stockings Follow up: in office in 2 weeks for wound check. Patient will be toe-touch weightbearing for 2 weeks with a knee immobilizer and no flexion of the knee followed by beginning range of motion at 2 weeks postop of wound is appropriate and 50% partial weightbearing. Patient will be placed on IV antibiotics. Infectious disease will be consulted for 6-week IV antibiotic course. After this antibiotic holiday will commence and plan for reimplantation will be started at that time. PT: to start POD #0 at hospital, outpatient PT should be arranged. My physician spa assistant manager was a vital part of this case. He was important in appro priate retraction during the case, and protection of soft tissues during bony cuts. His intimate knowledge of the case and my steps aided in safe and expedient completion of the procedure as well as appropriate position of the leg during the case. He was also vital in assisting with closure under my direct supervision. Grafts/Implants Used: [place] triathlon CR knee 5 femur, 6/16mm polyethylene Complications No intraoperative complications Admit VTE Documentation VTE Present on Admission: No VTE Mechan Device Prophylaxis: SCD's and Thigh High MAURO Hose VTE Pharm Prophylaxis ordered?: Yes
--- NOTE | 2021-09-19 19:15 | RAD_ITS ---
STUDY: X-RAY - RIGHT KNEE REASON FOR EXAM: Male, 71 years old. post op -- AP and Lateral xray of operative knee in PACU TECHNIQUE: 2 view(s) of the knee. COMPARISON: None. FINDINGS: The metallic stems of the tibial and femoral prosthetic components are absent, have been surgically removed. The cemented surrounding these stents are still present in the central shaft''s. The tibial articular prosthetic component has also been removed. The femoral articular prosthetic component is still present without complications. Moderate size ossicle seen at the inferior pole of the patella could be related to prior trauma to this region or loose body. Postoperative air and swelling and fluid is present. RAD/Knee 1 or 2 Views IMPRESSION: Postoperative changes as above Electronically Signed: Sha Becker MD at 20:09 EST ,
[2021-09-19] MEDS: Lactated Ringers 1,000 ML 125 ML IV (20:24)
--- NOTE | 2021-09-19 20:45 | PCM.PN.HOSP ---
Documented by User: JOHANA Starkey 09/19/21 20:59 Subjective Subjective Patient seen and examined. Patient lying in bed in PACU, drowsy but able to answer questions. at bedside to assist in question answering. No distress noted, leg immobilizer intact to right leg Objective Data Objective Data Vital Signs: Vital Signs Temp Pulse Resp BP Pulse Ox 98.8 F 93 16 140/79 H 96 09/19/21 18:30 09/19/21 20:15 09/19/21 20:15 09/19/21 20:15 09/19/21 20:15 Oxygen Flow Rate (L/min) 4 Oxygen Delivery Method Nasal Cannula Weight: 213 lb 13.574 oz Body Mass Index (BMI) 27.4 Intake & Output: Intake and Output for Last 24 Hours 09/17/21 09/18/21 09/19/21 23:59 23:59 23:59 Intake Total 3436 / 3436 Balance 3436 / 3436 Lab / Micro Data Labs: Laboratory Results - last 24 hr 09/19/21 13:42: POC Glucose 110 Radiography Diagnostic Testing: Radiology Impression Knee X-Ray 09/19/21 19:15 IMPRESSION: Postoperative changes as above Electronically Signed: Sha Becker MD at 20:09 EST Reading Location ID and State: [address] [place] [address] , Service support , Physical Exam Const alert and oriented x3 Orientation / Consciousness: lethargic HEENT head/scalp atraumatic Head and Scalp: normocephalic Eyes conjunctivae normal and no scleral icterus Neck no lymphadenopathy Resp normal respiratory effort and normal air movement Effort and Inspection: able to speak in complete sentences and symmetric chest movement Auscultation: diminished lung sounds Cardio regular rate, regular rhythm, S1 normal heart sound and S2 normal heart sound GI normal to inspection, nondistended, normoactive bowel sounds, soft to palpation and non-tender Extremity normal capillary refill and no clubbing, cyanosis or edema Extremity Narrative: Immobilizer intact to right leg status post surgery Peripheral Pulses: Yes pulses 2+ throughout Skin no rashes or lesions noted and skin turgor normal Skin Narrative: Dressing to anterior right leg intact, incision not visualized at this time secondary to postsurgical dressing Neuro oriented x3, moves all extremities, no focal motor deficits and no sensory deficits noted Sensorium / Orientation: awake and alert Speech: speech normal Psych affect normal Assessment & Plan Assessment/Plan (1) COPD (chronic obstructive pulmonary disease): QUALIFIERS: COPD type: unspecified COPD Qualified Code(s): J44.9 - Chronic obstructive pulmonary disease, unspecified (2) Benign prostatic hyperplasia: QUALIFIERS: Lower urinary tract symptom presence: symptoms absent Qualified Code(s): N40.0 - Benign prostatic hyperplasia without lower urinary tract symptoms (3) Gastroesophageal reflux disease: QUALIFIERS: Esophagitis presence: without esophagitis Qualified Code(s): K21.9 - Gastro-esophageal reflux disease without esophagitis (4) Benign essential hypertension: (5) Infection of total right knee replacement: PLAN: 1. Essential hypertension -Vital signs per protocol, currently stable -Continue patient's home medication regimen including amlodipine, hydrochlorothiazide, metoprolol. 2. BPH -Stable patient asymptomatic at this time -Continue tamsulosin, finasteride 3. GERD -Stable, patient asymptomatic at this time -Continue omeprazole 4. COPD -Currently stable -Continue scheduled DuoNeb nebulizer treatments along with as needed albuterol and scheduled budesonide 5. Infection of total knee replacement -Patient underwent irrigation debridement with explant and placement of antibiotic spacer right knee and right knee placement of nonbiodegradable antibiotic delivery system with Dr. Nunez today -Cultures were sent per Dr. Nunez -Continue IV cefazolin and vancomycin, ID consult pending -Patient will most likely need 6 weeks of IV antibiotics and PICC line placement. -Pain management regimen ordered per Dr. Nunez DVT prophylaxis-SCDs This patient was seen by JOHANA Starkey under the supervision of Dr. Meek. 13 minutes spent in clinical coordination of patient's plan of care. Documented by User: Dr. Shelbi Meek MD 09/19/21 22:42 Charges/Coding Addendum Addendum: This patient was seen in conjunction with Collins Artis NP. I have independently interviewed and examined the patient and reviewed pertinent historical, laboratory, and other data. I have reviewed her note and concur with her documentation 71-year-old female with past medical history of right total knee replacement who comes in for elective right knee and antibiotic spacer placement. Patient was seen in the clinic 2 weeks earlier and had knee aspiration done. Synovial fluid was positive for infection with Staphylococcus. Patient was seen in PACU. Denied any complaints except for pain in the knee. Denied any dizziness or chest pain or shortness of breath. Physical Exam: Gen: Comfortable, not pale, not jaundiced CVS:HS I +II, regular, no murmurs RESP: Diminished at lung bases GI: BS present and normal, soft, nontender, no palpable organs EXT:No edema Labs: Pending ASSESSMENT: 1. Postop day #0 status post I&D with explant and placement of antibiotic spacer in the right knee for right knee infection 2. Hypertension 3. GERD 4. BPH 5. COPD, not in acute exacerbation Plan: Continue with postop instructions per orthopedic surgery Continue with pain medication Continue with IV cefazolin and vancomycin Continue amlodipine and hydrochlorothiazide as well as metoprolol and PPI Time spent coordinating patient's care, discussing with subspecialty and nursin minutes Visit Charges Inpatient E&M: 44361 Subs Hosp L2
[2021-09-19] MEDS: Ipratropium/Albuterol Sulfate 3 ML AMPUL.NEB INHALATION (22:35)
[2021-09-19] MEDS: Budesonide Respules 0.5 MG/2 ML AMPUL.NEB. INHALATION (22:35)
[2021-09-19] MEDS: Ketorolac 15 MG/ML Vial IV (22:42)
[2021-09-19] MEDS: Aspirin 81 MG TAB.CHEW PO (22:49)
[2021-09-19] MEDS: Tamsulosin HCl 0.4 MG Capsule 0.8 MG PO (22:50)
[2021-09-19] MEDS: Pantoprazole Sodium 20 MG Tablet PO (22:51)
[2021-09-19] MEDS: Metoprolol Tartrate 25 MG Tablet 12.5 MG PO (22:51)
[2021-09-19] MEDS: Senna/Docusate Sodium 1 Tablet 2 TABLET PO (22:52)
[2021-09-19] MEDS: amLODIPine 10 MG Tablet PO (22:52)
[2021-09-19] MEDS: Pravastatin 80 MG Tablet PO (22:52)
[2021-09-19] MEDS: Pregabalin 75 MG Capsule 150 MG PO (22:53)
[2021-09-19] MEDS: Cefazolin 1 GM/50 ML BAG IV (23:01)
[2021-09-19 23:22] LABS: Anion Gap 6 (5-15); BUN 9 mg/dL (7-18); BUN/Creat Ratio 10.4 RATIO (10-20); Calcium,Total 8.3 mg/dL (8.5-10.1); Chloride 106 mmol/L (98-107); Creatinine, Serum 0.87 mg/dL (0.70-1.30); EST Glomerular Filtration Rate 92 mL/min (>60); Est Glom Filt Rate - Afr Amer 112 mL/min (>60); Estimated Creatinine Clearance 91.86 ml/min; Glucose 153 mg/dL (74-106); Potassium 3.5 mmol/L (3.5-5.1); Sodium Level 140 mmol/L (136-145)
--- NOTE | 2021-09-19 23:38 | PCM.RX.CS ---
Consult Pharmacy has been consulted to manage selected antiobiotic: Vancomycin Type of Consult: New start Labs: Sodium 140 mmol/L (136-145) 09/19/21 22:30 Potassium 3.5 mmol/L (3.5-5.1) 09/19/21 22:30 Chloride 106 mmol/L (98-107) 09/19/21 22:30 Carbon Dioxide 28.0 mmol/L (21.0-32.0) 09/19/21 22:30 Anion Gap 6 (5-15) 09/19/21 22:30 BUN 9 mg/dL (7-18) 09/19/21 22:30 Creatinine 0.87 mg/dL (0.70-1.30) 09/19/21 22:30 Est GFR (MDRD) Af Amer 112 mL/min (>60) 09/19/21 22:30 Est GFR (MDRD) Non-Af 92 mL/min (>60) 09/19/21 22:30 BUN/Creatinine Ratio 10.4 RATIO (10-20) 09/19/21 22:30 Glucose 153 mg/dL (74-106) H 09/19/21 22:30 Weight used for dosin kg Estimated Creatinine Clearance: 91.9 Goal Trough: 15-20 mcg/mL Pharmacy Plan for Drug Dosing: Pharmacy Service will continue to monitor and adjust dosing as required. Medications Vancomycin HCl 2,000 mg/ (Sodium Chloride) 540 mls @ 250 mls/hr IV Q12H EFFIE Discontinued Medications Vancomycin HCl (Vancomycin Iv 1,000 Mg/20 Ml Vial) 2,000 mg OPERA.SITE X1 ONE Stop: 09/19/21 16:31 Last Admin: 09/19/21 17:20 Dose: 2,000 mg Documented by: Follow-Up Labs: Trough Vancomycin Labs to be done on [date and time ordered]: 09/21 @ 1030
[2021-09-20] VITALS (11 sets, daily range): BP systolic 120–134; BP diastolic 55–80; PULSE 69–87; RESP 16–18; TEMP 36.6–37.3; O2SAT 92–98
[2021-09-20] MEDS: oxyCODONE 5 MG Tablet PO ×5 (01:29→21:40)
[2021-09-20 06:03] LABS: Hemoglobin 11.5 g/dL (13.0-16.5); Mean Corp Hgb Conc 32.9 g/dL (32-36); Mean Corpuscular Hgb 26.7 pg (27.0-32.0); Mean Corpuscular Volume 81.2 fL (80-94); Mean Platelet Vol. 9.5 fl (6.2-12.0); Platelet Count 293 K/mm3 (150-450); RBC Distribution Width CV 14.6 % (11.6-14.6); RBC Distribution Width SD 43.6 fl (35.1-43.9); Red Blood Count 4.31 M/mm3 (4.6-6.2); White Blood Count 12.2 K/mm3 (4.4-11.0)
[2021-09-20 06:41] LABS: Anion Gap 7 (5-15); BUN 11 mg/dL (7-18); Calcium,Total 8.2 mg/dL (8.5-10.1); Chloride 106 mmol/L (98-107); Creatinine, Serum 0.78 mg/dL (0.70-1.30); EST Glomerular Filtration Rate 104 mL/min (>60); Est Glom Filt Rate - Afr Amer 126 mL/min (>60); Estimated Creatinine Clearance 79.92 ml/min; Glucose 134 mg/dL (74-106); Potassium 3.8 mmol/L (3.5-5.1); Sodium Level 141 mmol/L (136-145)
[2021-09-20] MEDS: 0.9% Saline Lock 10 ML Syringe IV ×6 (07:01→23:57)
[2021-09-20] MEDS: Cefazolin 1 GM/50 ML BAG IV (07:01)
[2021-09-20] MEDS: Acetaminophen 500 MG Tablet 1000 MG PO ×3 (07:02→21:49)
[2021-09-20] MEDS: Lactated Ringers 1,000 ML 75 ML IV (07:03)
[2021-09-20] MEDS: Budesonide Respules 0.5 MG/2 ML AMPUL.NEB. INHALATION ×2 (07:15→19:27)
[2021-09-20] MEDS: Ipratropium/Albuterol Sulfate 3 ML AMPUL.NEB INHALATION ×2 (07:15→19:27)
--- NOTE | 2021-09-20 07:57 | PCM.PN.ORT ---
Subjective Subjective Patient sitting up in bed. Patient's states pain is been very well managed. Patient denies chest pain, shortness of breath, calf pain, nausea vomiting. Patient has no other complaints at this time. Objective Data Objective Data Vital Signs: Vital Signs Temp Pulse Resp BP Pulse Ox 97.9 F 80 18 134/69 H 93 09/20/21 06:42 09/20/21 07:16 09/20/21 07:16 09/20/21 06:42 09/20/21 07:16 Oxygen Flow Rate (L/min) 2 Oxygen Delivery Method Room Air Weight: 100.6 kg Body Mass Index (BMI) 28.4 Intake & Output: Intake and Output for Last 24 Hours 09/18/21 09/19/21 09/20/21 23:59 23:59 23:59 Intake Total 3486 / 3586 1690 / 1690 Output Total 1100 / 1100 475 / 475 Balance 2386 / 2486 1215 / 1215 Lab / Micro Data Result Diagrams: 09/20/21 05:26 09/20/21 05:26 Labs: Laboratory Results - last 24 hr 09/19/21 13:42: POC Glucose 110 09/19/21 22:30: Sodium 140, Potassium 3.5, Chloride 106, Carbon Dioxide 28.0, Anion Gap 6, BUN 9, Creatinine 0.87, Estim Creat Clear Calc 91.86, Est GFR (MDRD) Af Amer 112, Est GFR (MDRD) Non-Af 92, BUN/Creatinine Ratio 10.4, Glucose 153 H, Calcium 8.3 L 09/20/21 05:26: WBC 12.2 H, RBC 4.31 L, Hgb 11.5 L, Hct 35.0 L, MCV 81.2, MCH 26.7 L, MCHC 32.9, RDW Std Deviation 43.6, RDW Coeff of Stephanie 14.6, Plt Count 293, MPV 9.5 09/20/21 05:26: Sodium 141, Potassium 3.8, Chloride 106, Carbon Dioxide 28.0, Anion Gap 7, BUN 11, Creatinine 0.78, Estim Creat Clear Calc 79.92, Est GFR (MDRD) Af Amer 126, Est GFR (MDRD) Non-Af 104, BUN/Creatinine Ratio 14.0, Glucose 134 H, Calcium 8.2 L Radiography Diagnostic Testing: Radiology Impression Knee X-Ray 09/19/21 19:15 IMPRESSION: Postoperative changes as above Electronically Signed: Sha Becker MD at 20:09 EST , Physical Exam Narrative Patient sitting up in bed, alert oriented. Patient in no respiratory distress, speaking in full sentences. Patient had good motion of the upper extremities with good muscle tone and strength. Good motion of the left knee ankle and foot. The right leg was in a knee immobilizer. The dressing was clean dry intact. Patient had no calf tenderness. Patient has good plantar flexion dorsiflexion of the right foot and ankle. Neurovascular is otherwise intact. Vital signs and labs were all reviewed noted in the medical record. Const alert and oriented x3 Eyes PERRL Neuro CN's II-XII intact bilaterally Psych mental status grossly normal Assessment & Plan Assessment/Plan (1) Infection of total right knee replacement: PLAN: 1. Continue all pain medications as prescribed 2. Aspirin 81 mg 1 p.o. every 12 hours x30 days for postop DVT prophylaxis 3. Continue wearing knee immobilizer, toe-touch weightbearing only. 4. Ice to right knee 5. Consult ID for antibiotic management 6. 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
[2021-09-20] MEDS: Potassium Chloride Oral Tablet 20 MEQ PO (09:12)
[2021-09-20] MEDS: Aspirin 81 MG TAB.CHEW PO ×2 (09:13→21:42)
[2021-09-20] MEDS: Loratadine 10 MG Tablet PO (09:13)
[2021-09-20] MEDS: Finasteride 5 MG Tablet PO (09:14)
[2021-09-20] MEDS: Pantoprazole Sodium 20 MG Tablet PO ×2 (09:14→21:45)
[2021-09-20] MEDS: Senna/Docusate Sodium 1 Tablet 2 TABLET PO ×2 (09:14→21:45)
[2021-09-20] MEDS: Famotidine 20 MG Tablet PO (09:14)
[2021-09-20] MEDS: hydroCHLOROthiazide 25 MG Tablet PO (09:14)
[2021-09-20] MEDS: Ensure Surgery 237 ML LIQUID PO ×3 (09:19→16:36)
[2021-09-20] MEDS: Metoprolol Tartrate 25 MG Tablet 12.5 MG PO ×2 (09:20→21:43)
[2021-09-20] MEDS: Pregabalin 75 MG Capsule 150 MG PO ×2 (09:20→21:40)
[2021-09-20] MEDS: Fluticasone 0.05% 1 SPRAY NASAL.SRY NASAL (09:20)
[2021-09-20] MEDS: Ketorolac 15 MG/ML Vial IV (09:24)
--- NOTE | 2021-09-20 10:06 | CON.PCM.ID_ITS ---
Assessment & Plan Assessment/Plan (1) Infection of total right knee replacement: PLAN: R knee PJI, now s/p spacer placement 09/19/[address] Nunez. Aspiration done 09/09, reportedly showed staph, will request further records. Will order picc, cover with vanc/ceftriaxone for now, plan on 6 week course iv abx with weekly labs, stop date 10/31/21, ID followup in 2 weeks. Pt has covid vaccine x3. Will follow, thank you HPI Consult Data Date of Consult: 09/20/21 HPI Narrative HPI Narrative: DAWSON MIGUEL, is a 71 M who presented 09/19 for R knee PJI. Had replacement 11/2020, revised 04/2021 with some postop inflammation but neg cxs. Doing well since then until had covid in July, then pneumonia in August. About 2 weeks ago, noticed progressive R knee swelling, warmth, moderate/severe pain (worse with movement). No fever or chills, no drainage, no recent abx. He took course of azithro for his pneumonia around early August. Seen by ortho, aspiration done 09/09, followed up with Dr. Nunez, then taken to OR 09/19 for spacer placement. Feeling ok this Am, provided additional history. Full ROS performed and neg except as noted above. FOR[facility] Medical History Arthritis Asthma Back pain Blackout Cancer COPD (chronic obstructive pulmonary disease) Gastric reflux High cholesterol History of COVID-19 History of edema History of hiatal hernia History of pain when walking History of stress test Hypertension Injury of head and neck Low iron Non-smoker Prostate disease Wears glasses Wears hearing aid Wears partial dentures Home Medications albuterol sulfate [Ventolin HFA] 1 - 2 puff INHALATION Q6H PRN PRN 06/20/13 [History Last Taken 09/18/21] hydrochlorothiazide 25 mg PO DAILY 06/20/13 [History Last Taken 09/18/21] omeprazole 20 mg PO BID 06/20/13 [History Last Taken 09/19/21] potassium chloride [Klor-Con M20] 20 meq PO DAILY 06/20/13 [History Last Taken 09/18/21] tamsulosin 0.8 mg PO QHS 06/20/13 [History Last Taken 09/18/21] pravastatin 80 mg PO DAILY 10/24/13 [History Last Taken 09/18/21] montelukast 10 mg PO DAILY 02/10/15 [History Last Taken 09/18/21] metoprolol tartrate 12.5 mg PO BID 02/11/15 [History Last Taken 09/19/21] loratadine [Allergy Relief (loratadine)] 10 mg PO DAILY 07/29/15 [History Last Taken 09/18/21] finasteride 5 mg PO DAILY 02/15/18 [History Last Taken 09/18/21] guaifenesin 400 mg PO Q4H PRN PRN 02/15/18 [History Last Taken 09/18/21] meloxicam 7.5 mg PO BID 02/15/18 [History Last Taken 09/18/21] tramadol 50 mg PO Q8H PRN PRN 02/15/18 [History Last Taken 09/18/21] celecoxib 200 mg PO DAILY 07/25/21 [History Last Taken 09/18/21] cholecalciferol (vitamin D3) [Vitamin D3] 50 mcg PO DAILY 07/25/21 [History Last Taken 09/18/21] fluticasone propionate [Flonase] 1 spray INTRANASAL DAILY 07/25/21 [History Last Taken 09/18/21] mometasone [Asmanex HFA] 2 puff INHALATION BID 07/25/21 [History Last Taken 09/18/21] multivitamin 1 tab PO DAILY 07/25/21 [History Last Taken 09/18/21] pregabalin 150 mg PO BID 07/25/21 [History Last Taken 09/18/21] tiotropium-olodaterol [Stiolto Respimat] 2 puff INHALATION DAILY 07/25/21 [History Last Taken 09/18/21] amlodipine 10 mg PO QHS 09/16/21 [History Last Taken 09/18/21] ascorbic acid (vitamin C) [Vitamin C] 500 mg PO DAILY 09/16/21 [History Last Taken 09/18/21] ceftriaxone 2 g IV Q24H #40 ea 09/20/21 [Rx Last Taken Unknown] vancomycin 2 g IV Q12H 40 Days #80 ea 09/20/21 [Rx Last Taken Unknown] Allergy/AdvReac Type Severity Reaction Status Date / Time iodine Allergy IVP DYE Verified 09/19/21 13:45 Family History Other Cancer Heart disease Kidney disease Surgical History (Updated 09/16/21 @ 13:45 by Angelica Schneider) History of cardiac catheterization History of cystoscopy History of hip replacement History of knee replacement History of tonsillectomy Hx of fusion of cervical spine Hx of laminectomy Hx of total knee arthroplasty Social History Smoking Status: Never smoker Physical Exam Const alert, oriented x3 and no apparent distress General Appearance: cooperative Exam Limitations: no limitations HEENT normocephalic and head/scalp atraumatic Eyes PERRL and EOMs intact bilaterally Neck supple and No nodes Resp normal air movement and clear to auscultation bilaterally Cardio regular rate, regular rhythm and no murmurs GI soft to palpation, non-tender and non-distended Extremity no clubbing, cyanosis or edema Skin Skin Narrative: RLE wrapped, no rash Neuro CN's II-XII intact bilaterally Lab / Micro Data Result Diagrams: 09/20/21 05:26 09/20/21 05:26 Labs: Laboratory Results - last 24 hr 09/19/21 13:42: POC Glucose 110 09/19/21 22:30: Sodium 140, Potassium 3.5, Chloride 106, Carbon Dioxide 28.0, Anion Gap 6, BUN 9, Creatinine 0.87, Estim Creat Clear Calc 91.86, Est GFR (MDRD) Af Amer 112, Est GFR (MDRD) Non-Af 92, BUN/Creatinine Ratio 10.4, Glucose 153 H, Calcium 8.3 L 09/20/21 05:26: WBC 12.2 H, RBC 4.31 L, Hgb 11.5 L, Hct 35.0 L, MCV 81.2, MCH 26.7 L, MCHC 32.9, RDW Std Deviation 43.6, RDW Coeff of Stephanie 14.6, Plt Count 293, MPV 9.5 09/20/21 05:26: Sodium 141, Potassium 3.8, Chloride 106, Carbon Dioxide 28.0, Anion Gap 7, BUN 11, Creatinine 0.78, Estim Creat Clear Calc 79.92, Est GFR (MDRD) Af Amer 126, Est GFR (MDRD) Non-Af 104, BUN/Creatinine Ratio 14.0, Gl ucose 134 H, Calcium 8.2 L Radiology Impression Knee X-Ray 09/19/21 19:15 IMPRESSION: Postoperative changes as above Electronically Signed: Sha Becker MD at 20:09 EST Reading Location ID and State: [address] [place] [address] , Service support ,
--- NOTE | 2021-09-20 10:40 | CASEMGMT ---
Addendum entered by Pam Bell 09/20/21 14:53: KAREN HILL in to pt room, pt has chosen [facility] in that order for [facility]. TC to [facility], spoke with [place], referral faxed at this time. She will call back with acceptance. Addendum entered by Pam Bell 09/20/21 11:17: Faxed [facility] prelim referral at this time as only option for [facility]. Addendum entered by Pam Bell 09/20/21 11:07: KAREN HILL in to room, gave LW/DPOA documents back to pt . Patient and was provided a list of HHC and [facility] providers including quality and resource use data and consistent with the patient?s preferred geographic region, medical needs, and insurance network. They will review list for preference and RN CM will check back. Original Note: RN CM Assessment: Face to Face with pt for initial transition planning/care coordination assessment. RN CM introduced self and role at [facility], pt voices understanding and consents to assessment. Pt is A/O x4 and answers all questions appropriately at this time. Pt sitting up in chair with at bedside, just finished with therapy. Care providers, pharmacy, and demographics verified/updated. Admitting Dx: R Knee PJI PCP:Vladimir Ayala Specialists:elba Nunez; pulm specialist at [place] but has not seen in some time. Preferred Pharmacy: [facility] Rx while inpatient Insurance: [facility] [employer] Prescription Benefit: yes LW/HPOA: Pt has a LW/DPOA and provided this RN CM the document. Copied and placed in pt chart and returned to pt. DPOA is pt , [employer]. LNOK: [employer], Living Arrangements: Pt lives with in a single story house with 2 steps to enter without a rail. Pt uses the door frame. Pt reports he is I in ADL's and denies concerns at home. Transportation: Pt drives self and denies concerns with transportation. is able to transport pt as well. DME/HHC/SNF: Pt has a cane, walker, director commercial sales and a grab bar in the shower. Pt denies hx of HHC or SNF stays. Discussed with pt the need for IV atb at dc as ID provided scripts to this RN CM. Pt states no concerns with going home at time of dc. Pt states she is able to learn the administration of IV atb. Discussed expectations of HHC with pt and . Will be back to provide lists of options. Pt states no further concerns/needs. CM to follow. Advised pt to ask CM if any further question/concerns/needs arise, voices understanding. Pt Goal: Home with HHC Plan: Home with HHC for IV atb and therapy
--- NOTE | 2021-09-20 11:25 | PCA ---
Request of Medical Records faxed to 's office, per 's order.
--- NOTE | 2021-09-20 12:42 | CASEMGMT ---
Social Work Note Per admissions gate attendant questions, pt has completed HCPOA and LW and provided documents to [facility]. While RN CM was completing initial assessment, RN CM was provided copies of HCPOA/LW. RN CM placed HCPOA/LW on pt's chart. Theresa Jeronimo MSW, DOOR REPAIRMAN
--- NOTE | 2021-09-20 15:22 | PN.HOSP_ITS ---
Subjective Subjective Patient states his pain is currently well controlled on his current medication. Bowel regimen as ordered. Patient has no complaints at this time. Objective Data Objective Data Vital Signs: Vital Signs Temp Pulse Resp BP Pulse Ox 98.4 F 74 16 127/58 H 96 09/20/21 12:00 09/20/21 12:00 09/20/21 12:00 09/20/21 12:00 09/20/21 12:00 Oxygen Flow Rate (L/min) 2 Oxygen Delivery Method Room Air Weight: 100.6 kg Body Mass Index (BMI) 28.4 Intake & Output: Intake and Output for Last 24 Hours 09/18/21 09/19/21 09/20/21 23:59 23:59 23:59 Intake Total 3486 / 3586 2970 / 2970 Output Total 1100 / 1100 1175 / 1175 Balance 2386 / 2486 1795 / 1795 Lab / Micro Data Result Diagrams: 09/20/21 05:26 09/20/21 05:26 Labs: Laboratory Results - last 24 hr 09/19/21 22:30: Sodium 140, Potassium 3.5, Chloride 106, Carbon Dioxide 28.0, Anion Gap 6, BUN 9, Creatinine 0.87, Estim Creat Clear Calc 91.86, Est GFR (MDRD) Af Amer 112, Est GFR (MDRD) Non-Af 92, BUN/Creatinine Ratio 10.4, Glucose 153 H, Calcium 8.3 L 09/20/21 05:26: WBC 12.2 H, RBC 4.31 L, Hgb 11.5 L, Hct 35.0 L, MCV 81.2, MCH 26.7 L, MCHC 32.9, RDW Std Deviation 43.6, RDW Coeff of Stephanie 14.6, Plt Count 293, MPV 9.5 09/20/21 05:26: Sodium 141, Potassium 3.8, Chloride 106, Carbon Dioxide 28.0, Anion Gap 7, BUN 11, Creatinine 0.78, Estim Creat Clear Calc 79.92, Est GFR (MDRD) Af Amer 126, Est GFR (MDRD) Non-Af 104, BUN/Creatinine Ratio 14.0, Glucose 134 H, Calcium 8.2 L Micro: Microbiology 09/19/21 Unknown Tissue - Other Gram Stain - Final 09/19/21 Unknown Tissue - Other Wound Culture - Preliminary No growth-Final to follow 09/19/21 Unknown Tissue - Other Gram Stain - Final 09/19/21 Unknown Tissue - Other Wound Culture - Preliminary No growth-Final to follow 09/19/21 Unknown Tissue - Other Gram Stain - Final 09/19/21 Unknown Tissue - Other Wound Culture - Preliminary No growth-Final to follow Radiography Diagnostic Testing: Radiology Impression Knee X-Ray 09/19/21 19:15 IMPRESSION: Postoperative changes as above Electronically Signed: Sha Becker MD at 20:09 EST Reading Location ID and State: [facility] / MD , Service support , Physical Exam Const alert, oriented x3, no apparent distress, healthy appearing and well nourished Constitutional Narrative: Overweight white male lying in bed, right knee is curr ently in immobilizer, nursing at bedside, patient appears comfortable and nontoxic Exam Limitations: no limitations Nutritional Appearance: overweight HEENT head/scalp atraumatic and moist oral mucous membranes Head and Scalp: normocephalic Resp normal respiratory effort, no retractions, no use of accessory muscles and clear to auscultation bilaterally Auscultation: Negative for crackles, rales, rhonchi or wheezes Cardio regular rate, regular rhythm, S1 normal heart sound, S2 normal heart sound, no murmurs, no rub, no gallops, no clicks and no JVD GI normal to inspection, nondistended, normoactive bowel sounds, soft to palpation, non-tender and non-distended Extremity no clubbing, cyanosis or edema Extremity Narrative: Right lower extremity immobilizer Neuro oriented x3 and no focal motor deficits Sensorium / Orientation: awake and alert Speech: speech normal Assessment & Plan Assessment/Plan (1) Infection of total right knee replacement: (2) 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 twice daily for 30 days for postop DVT prophylaxis per primary service -Continue DM immobilizer with toe-touch weightbearing only -Ice as needed -Physical therapy for gait training -Bowel regimen -Pain management per primary service -ID is following and PICC order was placed as patient will need 6 weeks of IV antibiotics at discharge -Currently on Vanco Zosyn will continue until cultures are finalized -Patient will need ID follow-up in 2 weeks after discharge Essential hypertension -Continue to monitor -Continue home amlodipine, hydrochlorothiazide, metoprolol BPH -Continue home tamoxifen, finasteride GERD -Continue home omeprazole COPD -Continue home inhalers -Continue current nebulizers DVT prophylaxis -Aspirin 81 mg p.o. twice daily per primary service Charges/Coding Visit Charges Inpatient E&M: 85116 Subs Hosp L2
--- NOTE | 2021-09-20 15:53 | CASEMGMT ---
Received tc back from Daphne at [facility]. Pt benefits- Covered at 80% until oop is met ($4200). Pt has met $215 to date. Copay is $142.30/wk for meds and total of $309.85/wk.
[2021-09-20] MEDS: Morphine 2 MG/ML Syringe IV ×2 (17:44→23:47)
[2021-09-20] MEDS: Pravastatin 80 MG Tablet PO (21:41)
[2021-09-20] MEDS: Tamsulosin HCl 0.4 MG Capsule 0.8 MG PO (21:42)
[2021-09-20] MEDS: amLODIPine 10 MG Tablet PO (21:44)
[2021-09-20] MEDS: Montelukast 10 MG Tablet PO (21:46)
[2021-09-21] VITALS (12 sets, daily range): BP systolic 130–149; BP diastolic 76–87; PULSE 78–94; RESP 14–20; TEMP 36.5–36.8; O2SAT 92–94
[2021-09-21] MEDS: oxyCODONE 5 MG Tablet PO ×5 (04:26→22:48)
[2021-09-21] MEDS: Acetaminophen 500 MG Tablet 1000 MG PO ×3 (04:27→20:56)
[2021-09-21 06:34] LABS: Hematocrit 33.3 % (40-54); Hemoglobin 10.9 g/dL (13.0-16.5); Mean Corp Hgb Conc 32.7 g/dL (32-36); Mean Corpuscular Hgb 26.8 pg (27.0-32.0); Mean Platelet Vol. 9.3 fl (6.2-12.0); Platelet Count 227 K/mm3 (150-450); RBC Distribution Width CV 14.8 % (11.6-14.6); RBC Distribution Width SD 44.5 fl (35.1-43.9); Red Blood Count 4.06 M/mm3 (4.6-6.2); White Blood Count 8.9 K/mm3 (4.4-11.0)
--- NOTE | 2021-09-21 06:51 | PCM.PN.ORT ---
Subjective Subjective 71-year-old male is postop day 2 from explant placement of antibiotic spacer. Doing well overall however he did require IV morphine overnight for analgesia. Reports level of comfort this morning that is appropriate. No chest pain or shortness of breath. Continuing to follow cultures no positive cultures at this time. Initial aspiration did show positive DNA for Staphylococcus in the office and labs were sent out. He is remained afebrile. He has been able to use his walker with physical therapy. Objective Data Objective Data Vital Signs: Vital Signs Temp Pulse Resp BP Pulse Ox 97.8 F 80 18 149/87 H 93 09/21/21 04:31 09/21/21 04:31 09/21/21 04:31 09/21/21 04:31 09/21/21 04:31 Oxygen Flow Rate (L/min) 2 Oxygen Delivery Method Room Air Weight: 221 lb 12.56 oz Body Mass Index (BMI) 28.4 Intake & Output: Intake and Output for Last 24 Hours 09/19/21 09/20/21 09/21/21 23:59 23:59 23:59 Intake Total 3486 / 3586 4170 / 4170 540 / 540 Output Total 1100 / 1100 2400 / 2400 1350 / 1350 Balance 2386 / 2486 1770 / 1770 -810 / -810 Lab / Micro Data Result Diagrams: 09/21/21 06:20 09/20/21 05:26 Labs: Laboratory Results - last 24 hr 09/21/21 06:20: WBC 8.9, RBC 4.06 L, Hgb 10.9 L, Hct 33.3 L, MCV 82.0, MCH 26.8 L, MCHC 32.7, RDW Std Deviation 44.5 H, RDW Coeff of Stephanie 14.8 H, Plt Count 227, MPV 9.3 Micro: Microbiology 09/19/21 Unknown Tissue - Other Gram Stain - Final 09/19/21 Unknown Tissue - Other Wound Culture - Preliminary No growth-Final to follow 09/19/21 Unknown Tissue - Other Gram Stain - Final 09/19/21 Unknown Tissue - Other Wound Culture - Preliminary No growth-Final to follow 09/19/21 Unknown Tissue - Other Gram Stain - Final 09/19/21 Unknown Tissue - Other Wound Culture - Preliminary No growth-Final to follow Physical Exam Const alert and oriented x3 Resp normal respiratory effort Extremity Extremity Narrative: Right lower extremity: Dressing is intact. Minimal drainage small dime sized area at the distal portion of the incision Sensations intact to light touch saphenous, sural, superficial peroneal, deep peroneal, and tibial distributions Motors intact EHL, DF, PF calves are soft and supple Knee immobilizer in place. 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 Pain:Continue all pain medications as prescribed. If patient continues to need IV morphine will consider long-acting MS Contin 2. DVT prophylaxis:Aspirin 81 mg 1 p.o. every 12 hours x30 days for postop DVT prophylaxis 3. Therapy:Continue wearing knee immobilizer, toe-touch weightbearing only. Patient should have therapy for gait training and mobility. Mobilization is important for assistance and postop swelling. 4. Ice to right knee. Elevate extremity 5. Consult ID for antibiotic management At this time patient is on vancomycin and ceftriaxone as we follow cultures. Cultures so far negative however he does have positive DNA for Staphylococcus from the office outside laboratories. At this time I would like to follow the patient for another 24 hours. If he does not have any positive cultures at that time to help more direct antibiotic therapy will likely ready him for discharge on empiric antibiotic 6. Elevated white blood cell count: Most likely reactive lymph of due to use of steroids intraoperatively. Resolved today 7. Disposition: Plan is for discharge home with PICC line and antibiotics. If patient does not have positive cultures on postop day 3 to help direct antibiotics we will discharge home on empiric antibiotics. Appreciate medicine management of this patient. Appreciate infectious disease consult.
[2021-09-21] MEDS: Budesonide Respules 0.5 MG/2 ML AMPUL.NEB. INHALATION ×2 (07:31→19:23)
[2021-09-21] MEDS: Ipratropium/Albuterol Sulfate 3 ML AMPUL.NEB INHALATION ×3 (07:31→19:23)
[2021-09-21] MEDS: Morphine 2 MG/ML Syringe IV ×2 (07:43→11:16)
[2021-09-21] MEDS: 0.9% Saline Lock 10 ML Syringe IV ×2 (07:44→13:45)
[2021-09-21] MEDS: Ensure Surgery 237 ML LIQUID PO ×3 (09:11→17:17)
[2021-09-21] MEDS: Fluticasone 0.05% 1 SPRAY NASAL.SRY NASAL (09:12)
[2021-09-21] MEDS: Potassium Chloride Oral Tablet 20 MEQ PO (09:12)
[2021-09-21] MEDS: hydroCHLOROthiazide 25 MG Tablet PO (09:13)
[2021-09-21] MEDS: Famotidine 20 MG Tablet PO (09:13)
[2021-09-21] MEDS: Aspirin 81 MG TAB.CHEW PO ×2 (09:13→20:55)
[2021-09-21] MEDS: Metoprolol Tartrate 25 MG Tablet 12.5 MG PO ×2 (09:13→20:55)
[2021-09-21] MEDS: Finasteride 5 MG Tablet PO (09:13)
[2021-09-21] MEDS: Loratadine 10 MG Tablet PO (09:13)
[2021-09-21] MEDS: Senna/Docusate Sodium 1 Tablet 2 TABLET PO ×2 (09:13→20:56)
[2021-09-21] MEDS: Pantoprazole Sodium 20 MG Tablet PO ×2 (09:13→20:55)
[2021-09-21] MEDS: Pregabalin 75 MG Capsule 150 MG PO ×2 (09:20→21:00)
--- NOTE | 2021-09-21 09:42 | CASEMGMT ---
TC eli Saxena at [facility], they are able to accept pt. She is aware pt will not dc today. Faxed [facility] info at this time.
[2021-09-21 11:26] LABS: Vancomycin, Trough Level 15.1 ug/mL (5.0-15.0)
--- NOTE | 2021-09-21 11:50 | CASEMGMT ---
RN CM in to pt room, pt and present. They are aware of the cost of the medication and supplies and are agreeable to this. Spoke with [facility] and sent picc info via fax.
--- NOTE | 2021-09-21 13:05 | PCM.PN.ID ---
Physical Exam Narrative Feeling ok, pain controlled, no n/v/d. No fever. Picc in place. Const alert and no apparent distress General Appearance: cooperative Resp normal air movement and clear to auscultation bilaterally Cardio regular rate and regular rhythm GI soft to palpation, non-tender and non-distended Skin no rashes or lesions noted ID ID: Route of nutrition/ use of supplements: [] Nutritional Intake: [] IV Site: [] Barrientos Catheter: [] Assessment & Plan Assessment/Plan (1) Infection of total right knee replacement: PLAN: R knee PJI, now s/p spacer placement 09/19/[address] Nunez. Aspiration done 09/09, reportedly showed staph on pcr, will request further records. Picc in place, cover with vanc/ceftriaxone for now, plan on 6 week course iv abx with weekly labs, stop date 10/31/21, ID followup in 2 weeks. Pt has covid vaccine x3. Will follow
--- NOTE | 2021-09-21 13:33 | PCM.RX.CS ---
Consult Pharmacy has been consulted to manage selected antiobiotic: Vancomycin Type of Consult: Follow-up Prior Doses of Antibiotics Received/Current Regimen: Currently on 2000mg iv q12h. Labs: Sodium 141 mmol/L (136-145) 09/20/21 05:26 Potassium 3.8 mmol/L (3.5-5.1) 09/20/21 05:26 Chloride 106 mmol/L (98-107) 09/20/21 05:26 Carbon Dioxide 28.0 mmol/L (21.0-32.0) 09/20/21 05:26 Anion Gap 7 (5-15) 09/20/21 05:26 BUN 11 mg/dL (7-18) 09/20/21 05:26 Creatinine 0.78 mg/dL (0.70-1.30) 09/20/21 05:26 Est GFR (MDRD) Af Amer 126 mL/min (>60) 09/20/21 05:26 Est GFR (MDRD) Non-Af 104 mL/min (>60) 09/20/21 05:26 BUN/Creatinine Ratio 14.0 RATIO (10-20) 09/20/21 05:26 Glucose 134 mg/dL (74-106) H 09/20/21 05:26 Vancomycin Trough 15.1 ug/mL (5.0-15.0) H 09/21/21 10:40 Microbiology: Microbiology 09/19/21 Unknown Tissue - Other Gram Stain - Final 09/19/21 Unknown Tissue - Other Wound Culture - Preliminary No growth-Final to follow 09/19/21 Unknown Tissue - Other Gram Stain - Final 09/19/21 Unknown Tissue - Other Wound Culture - Preliminary No growth-Final to follow 09/19/21 Unknown Tissue - Other Gram Stain - Final 09/19/21 Unknown Tissue - Other Wound Culture - Preliminary No growth-Final to follow Weight used for dosin.6 kg Estimated Creatinine Clearance: >100ml/min Goal Trough: 15-20 mcg/mL Pharmacy Plan for Drug Dosing: Trough today 12hrs post dose was 15.1 and in therapeutic range. No new renal labs. Will continue same dose for now. A repeat trough level ordered for before another 4th dose. Pharmacy Service will continue to monitor and adjust dosing as required. Follow-Up Labs: Trough Vancomycin - 2.17.22@2230 before 2300 dose
--- NOTE | 2021-09-21 16:06 | PN.HOSP_ITS ---
Subjective Subjective Patient states his pain is well controlled. States that Dr. Nunez told him he would probably be able to go home tomorrow but wanted to have better finalization of his cultures prior to discharge. Objective Data Objective Data Vital Signs: Vital Signs Temp Pulse Resp BP Pulse Ox 98.1 F 78 20 H 147/82 H 92 09/21/21 13:45 09/21/21 14:13 09/21/21 14:13 09/21/21 13:45 09/21/21 13:45 Oxygen Flow Rate (L/min) 2 Oxygen Delivery Method Room Air Weight: 100.6 kg Body Mass Index (BMI) 28.4 Intake & Output: Intake and Output for Last 24 Hours 09/19/21 09/20/21 09/21/21 23:59 23:59 23:59 Intake Total 3486 / 3586 4170 / 4170 1430 / 1430 Output Total 1100 / 1100 2400 / 2400 1600 / 1600 Balance 2386 / 2486 1770 / 1770 -170 / -170 Lab / Micro Data Result Diagrams: 09/21/21 06:20 09/20/21 05:26 Labs: Laboratory Results - last 24 hr 09/21/21 06:20: WBC 8.9, RBC 4.06 L, Hgb 10.9 L, Hct 33.3 L, MCV 82.0, MCH 26.8 L, MCHC 32.7, RDW Std Deviation 44.5 H, RDW Coeff of Stephanie 14.8 H, Plt Count 227, MPV 9.3 09/21/21 10:40: Vancomycin Trough 15.1 H Micro: Microbiology 09/19/21 Unknown Tissue - Other Gram Stain - Final 09/19/21 Unknown Tissue - Other Wound Culture - Preliminary No growth-Final to follow 09/19/21 Unknown Tissue - Other Gram Stain - Final 09/19/21 Unknown Tissue - Other Wound Culture - Preliminary No growth-Final to follow 09/19/21 Unknown Tissue - Other Gram Stain - Final 09/19/21 Unknown Tissue - Other Wound Culture - Preliminary No growth-Final to follow Physical Exam Const alert, oriented x3, no apparent distress, healthy appearing and well nourished Constitutional Narrative: Overweight white male lying in bed, right knee is currently out of his immobilizer, nursing at bedside, patient appears comfo rtable and nontoxic Exam Limitations: no limitations Nutritional Appearance: overweight HEENT head/scalp atraumatic and moist oral mucous membranes Head and Scalp: normocephalic Resp normal respiratory effort, no retractions, no use of accessory muscles and clear to auscultation bilaterally Auscultation: Negative for crackles, rales, rhonchi or wheezes Cardio regular rate, regular rhythm, S1 normal heart sound, S2 normal heart sound, no murmurs, no rub, no gallops, no clicks and no JVD GI normal to inspection, nondistended, normoactive bowel sounds, soft to palpation, non-tender and non-distended Extremity no clubbing, cyanosis or edema Extremity Narrative: Right lower extremity immobilizer Peripheral Pulses: Yes pulses 2+ throughout Neuro oriented x3 and no focal motor deficits Sensorium / Orientation: awake and alert Speech: speech normal Assessment & Plan Assessment/Plan (1) Infection of total right knee replacement: (2) 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 twice daily for 30 days for postop DVT prophylaxis per primary service -Continue DM immobilizer with toe-touch weightbearing only -Ice as needed -Physical therapy for gait training -Bowel regimen -Pain management per primary service -ID is following and PICC order was placed as patient will need 6 weeks of IV antibiotics at discharge -Currently on Vanco/ceftriaxone will continue until cultures are finalized -Patient will need ID follow-up in 2 weeks after discharge Essential hypertension -Continue to monitor -Continue home amlodipine, hydrochlorothiazide, metoprolol BPH -Continue home tamoxifen, finasteride GERD -Continue home omeprazole COPD -Continue home inhalers -Continue current nebulizers DVT prophylaxis -Aspirin 81 mg p.o. twice daily per primary service Charges/Coding Visit Charges Inpatient E&M: 37740 Subs Hosp L2
[2021-09-21] MEDS: Montelukast 10 MG Tablet PO (20:54)
[2021-09-21] MEDS: Tamsulosin HCl 0.4 MG Capsule 0.8 MG PO (20:55)
[2021-09-21] MEDS: amLODIPine 10 MG Tablet PO (20:56)
[2021-09-21] MEDS: Meloxicam 7.5 MG Tablet PO (20:56)
[2021-09-21] MEDS: Pravastatin 80 MG Tablet PO (20:57)
[2021-09-22 02:21] VITALS: BP 135/72; PULSE 88; RESP 16; TEMP 36.6; O2SAT 95
[2021-09-22] MEDS: Acetaminophen 500 MG Tablet 1000 MG PO ×2 (05:24→14:23)
[2021-09-22 07:12] VITALS: PULSE 79; RESP 14; O2SAT 96
[2021-09-22] MEDS: Ipratropium/Albuterol Sulfate 3 ML AMPUL.NEB INHALATION ×2 (07:12→13:19)
[2021-09-22] MEDS: Budesonide Respules 0.5 MG/2 ML AMPUL.NEB. INHALATION (07:12)
[2021-09-22] MEDS: oxyCODONE 5 MG Tablet PO ×3 (07:57→16:38)
[2021-09-22 08:38] VITALS: PULSE 90
[2021-09-22] MEDS: Aspirin 81 MG TAB.CHEW PO (08:38)
[2021-09-22] MEDS: Loratadine 10 MG Tablet PO (08:38)
[2021-09-22] MEDS: Potassium Chloride Oral Tablet 20 MEQ PO (08:38)
[2021-09-22] MEDS: hydroCHLOROthiazide 25 MG Tablet PO (08:38)
[2021-09-22] MEDS: Metoprolol Tartrate 25 MG Tablet 12.5 MG PO (08:38)
[2021-09-22] MEDS: Famotidine 20 MG Tablet PO (08:39)
[2021-09-22] MEDS: Meloxicam 7.5 MG Tablet PO (08:39)
[2021-09-22] MEDS: Finasteride 5 MG Tablet PO (08:39)
[2021-09-22] MEDS: Pantoprazole Sodium 20 MG Tablet PO (08:40)
[2021-09-22] MEDS: Senna/Docusate Sodium 1 Tablet 2 TABLET PO (08:40)
[2021-09-22 08:44] VITALS: BP 122/69; PULSE 90; RESP 18; TEMP 36.8; O2SAT 95
--- NOTE | 2021-09-22 10:31 | PCM.PN.ID ---
Physical Exam Narrative Feeling fine, no fever, no n/v/d. Const alert and no apparent distress General Appearance: cooperative Resp normal air movement and clear to auscultation bilaterally Cardio regular rate and regular rhythm GI soft to palpation, non-tender and non-distended Extremity Extremity Narrative: R knee wrapped ID ID: Route of nutrition/ use of supplements: [] Nutritional Intake: [] IV Site: [] Barrientos Catheter: [] Assessment & Plan Assessment/Plan (1) Infection of total right knee replacement: PLAN: R knee PJI, now s/p spacer placement 09/19/[address] Nunez. Aspiration done 09/09, reportedly showed staph on pcr, will request further records. Picc in place, cover with vanc/ceftriaxone for now, plan on 6 week course iv abx with weekly labs, stop date 10/31/21, ID followup in 2 weeks. Pt has covid vaccine x3. Requested micro lab hold cxs for 14 days total. Will follow, d/w ortho
[2021-09-22] MEDS: Ensure Surgery 237 ML LIQUID PO ×2 (10:35→13:03)
[2021-09-22] MEDS: Fluticasone 0.05% 1 SPRAY NASAL.SRY NASAL (10:36)
[2021-09-22] MEDS: Pregabalin 75 MG Capsule 150 MG PO (10:36)
[2021-09-22] MEDS: 0.9% Saline Lock 10 ML Syringe IV (10:38)
--- NOTE | 2021-09-22 11:03 | PN.ORTHO_ITS ---
Subjective Subjective The patient was sitting in bedside chair upon examination with his present. Patient denies any chest pain, shortness of breath, dizziness, lightheadedness, nausea or vomiting, or calf pain. Pain is controlled on medications. No adverse overnight events. Overall patient is doing well. Case was discussed wi th infectious disease and at this point he is okay for discharge on current antibiotics. There is still been no growth on cultures. Infectious disease is having them held for 14 days. Patient's pain is been well controlled. He has been utilizing the knee immobilizer. He has been working with therapy. He is scheduled for home health. Objective Data Objective Data Vital Signs: Vital Signs Temp Pulse Resp BP Pulse Ox 98.3 F 90 18 122/69 H 95 09/22/21 08:44 09/22/21 08:44 09/22/21 08:44 09/22/21 08:44 09/22/21 08:44 Oxygen Flow Rate (L/min) 2 Oxygen Delivery Method Room Air Weight: 100.6 kg Body Mass Index (BMI) 28.4 Intake & Output: Intake and Output for Last 24 Hours 09/20/21 09/21/21 09/22/21 23:59 23:59 23:59 Intake Total 4170 / 4170 1930 / 2170 1020 / 1020 Output Total 2400 / 2400 1600 / 2375 1925 / 1925 Balance 1770 / 1770 330 / -205 -905 / -905 Lab / Micro Data Result Diagrams: 09/21/21 06:20 09/20/21 05:26 Labs: Laboratory Results - last 24 hr 09/21/21 10:40: Vancomycin Trough 15.1 H Micro: Microbiology 09/19/21 Unknown Tissue - Other Gram Stain - Final 09/19/21 Unknown Tissue - Other Wound Culture - Preliminary No growth-Final to follow 09/19/21 Unknown Tissue - Other Anaerobic Culture - Preliminary No growth in 48 hours. 09/19/21 Unknown Tissue - Other Gram Stain - Final 09/19/21 Unknown Tissue - Other Wound Culture - Preliminary No growth-Final to follow 09/19/21 Unknown Tissue - Other Anaerobic Culture - Preliminary No growth in 48 hours. 09/19/21 Unknown Tissue - Other Gram Stain - Final 09/19/21 Unknown Tissue - Other Wound Culture - Preliminary No growth-Final to follow 02/14/22 Unknown Tissue - Other Anaerobic Culture - Preliminary No growth in 48 hours. Physical Exam Narrative Vital signs stable and afebrile. Patient is able to plantarflex and dorsiflex actively. Knee immobilizer is in place. This was undone so I could examine the knee and dressing. Sensation is intact to light touch to saphenous, sural, superficial and deep peroneal, and tibial distribution. Dressing is clean dry and intact with grace size drainage over the middle one third which is stable. MAURO hose are present on bilateral lower extremities with SCD on the left Negative Homans bilaterally, negative signs and symptoms of DVT. 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 S/P right knee explant total knee arthroplasty with placement of antibiotic spacer POD #3 2. Continue Pain Medications: Tylenol and oxycodone 3. DVT Prophylaxis: Take 81 mg aspirin twice daily for 4 weeks postoperatively for DVT prophylaxis 4. PT/OT: Patient is toe-touch weightbearing with walker on the right lower extremity for 2 weeks postoperatively. Continue with knee immobilizer and no range of motion for 2 weeks. 5. Consultation infectious disease: Currently on vancomycin and ceftriaxone. There is been no change in the cultures from surgery. This was discussed with i nfectious disease. He will continue with the current IV antibiotics for 6 weeks postoperatively. He will follow-up in 2 weeks with infectious disease. 6. Continue postoperative medical management per medicine 7. Encouraged Incentive Spirometry 8. Disposition: Plan will be for discharge home today. Patient is orthopedically stable. Infectious disease was also okay with patient being discharged on current antibiotics. He will follow with infectious disease in 2 weeks. Cultures will be held for 14 days per infectious disease. Patient will follow-up per postop instructions. Patient will be getting home health. Prescriptions will be E scribed to [facility] pharmacy I have reviewed the [place] Automated Rx Reporting System (OARRS) report for this patient for refill pattern and other prescriber involvement as part of the appropriate surveillance for the provision of acute and chronic controlled medications. The report was requested and reviewed on the date of this entry and was considered in the prescribing process.
--- NOTE | 2021-09-22 11:09 | PCM.DC ---
Discharge Instructions Diet Discharge Diet: No restrictions Activity Discharge Activity: May Not Drive (while taking narcotic pain medications.) May shower in (days): 1 (Please turn dressing away from water. Okay to get wet as long as dressing is intact to skin.) Ice area for (Minutes): 20 (Every 1-2 hours while awake. Please place barrier between the skin and ice pack.) Weight Bearing Status: Toe touch weight bearing Keep extremity elevated above heart level: Operative Extremity Dressing / Incision Call your doctor if your incision/area has: Continuous Slow Oozing, Sudden Increased Bleeding, Increased Pain/ Swelling, Increased Redness and Foul Smelling Discharge Call your doctor if you observe: Fever of 101 or Higher, Coldness, Increased Pain, Numbness or Tingling, Change in Color, Shortness of breath, Chest pain, Calf discomfort and Uncontrolled pain Remove Dressing in: 3 days (Okay to remove dressing on 09/25/2021) Additional Dressing/Incision Instructions:: Follow [facility] Post-op Instructions. Once postoperative dressing has been removed only use gentle soap and water over the incision. Do not use any ointments, Neosporin, salves, alcohol pads over the incision for 6 weeks postoperatively. Do not submerge underwater for 6 weeks postoperatively. Continue with MAURO hose/elastic stockings for 2 weeks postoperatively. May remove at nighttime but needs to be placed back on the leg during the day. Continue with knee immobilizer while up and walking. Can open up the knee immobilizer for ice purposes only. Should sleep with the knee immobilizer on. No range of motion of the right knee. Toe-touch weightbearing on the right lower extremity with walker Do NOT use alcohol with narcotic pain medication. Do NOT make important decisions while taking narcotic medication. If you have problems with taking your medication (rash, itching, nausea, etc.) call the office at once. Follow Up Care Test Results: Test results from this visit will be discussed in further detail at your follow-up appointment, if applicable. Discharge Plan Admission Admit Date/Time: 09/19/21 12:53 Attending Provider: Poonam García Primary Care Provider: [facility],[place] Consulting Providers: Sabrina Vanessa ; Shelbi Meek ; Collins Flores ; Dinesh Kearns ; Mykel Hall ; Richard Perez Discharge Orders/Prescriptions Prescriptions: New ceftriaxone 2 gram recon soln 2 g IV Q24H Qty: 40 RF: 0 vancomycin 1,000 mg recon soln 2 g IV Q12H 40 Days Qty: 80 RF: 0 acetaminophen 500 mg Tablet 1,000 mg PO TID Qty: 0 RF: 0 aspirin 81 mg Tablet,Chewable 81 mg PO BID Qty: 0 RF: 0 oxycodone 5 mg Tablet 5 - 10 mg PO Q4H PRN PRN (Reason: Pain Score 4-10) 5 Days Qty: 60 RF: 0 sennosides-docusate sodium [Stool Softener-Stimulant Laxat] 8.6-50 mg Tablet 2 tab PO BID Qty: 20 RF: 0 ondansetron HCl 4 mg tablet 4 mg PO Q8H Qty: 20 RF: 0 Continued potassium chloride [Klor-Con M20] 20 MEQ tablet 20 meq PO DAILY RF: 0 tamsulosin 0.4 MG capsule 0.8 mg PO QHS RF: 0 omeprazole 20 MG capsule 20 mg PO BID RF: 0 hydrochlorothiazide 25 MG tablet 25 mg PO DAILY RF: 0 albuterol sulfate [Ventolin HFA] 1 INHALER inhaler 1 - 2 puff inhalation Q6H PRN PRN (Reason: Shortness Of Breath) RF: 0 pravastatin 20 MG tablet 80 mg PO DAILY RF: 0 montelukast 10 MG tablet 10 mg PO DAILY RF: 0 metoprolol tartrate 25 MG tablet 12.5 mg PO BID RF: 0 loratadine [Allergy Relief (loratadine)] 10 MG tablet 10 mg PO DAILY RF: 0 finasteride 5 MG tablet 5 mg PO DAILY RF: 0 guaifenesin 400 MG tablet 400 mg PO Q4H PRN PRN (Reason: Congestion) RF: 0 multivitamin Tablet 1 tab PO DAILY RF: 0 celecoxib 200 mg Capsule 200 mg PO DAILY RF: 0 fluticasone propionate 50 mcg/actuation [place],Suspension 1 spray INTRANASAL DAILY RF: 0 pregabalin 150 mg Capsule 150 mg PO BID RF: 0 cholecalciferol (vitamin D3) [Vitamin D3] 50 mcg (2,000 unit) Capsule 50 mcg PO DAILY RF: 0 Asmanex HFA 200 mcg/actuation Hfa Aerosol Inhaler 2 puff INHALATION BID RF: 0 Stiolto Respimat 2.5-2.5 mcg/actuation Mist 2 puff INHALATION DAILY RF: 0 ascorbic acid (vitamin C) [Vitamin C] 500 mg Tablet 500 mg PO DAILY RF: 0 amlodipine 10 MG tablet 10 mg PO QHS RF: 0 Discontinued tramadol 50 MG tablet 50 mg PO Q8H PRN PRN (Reason: Pain) RF: 0 meloxicam 7.5 MG tablet 7.5 mg PO BID RF: 0 Referrals / Follow Up: Saroj Delgado PA-C [PHYSICIAN RACECOURSE BARRIER ATTENDANT] - 10/03/21 10:00 am [facility],[place] [Primary Care Provider] - Disposition Disposition (needs filled in before D/C Order can be placed): Home Health Service
--- NOTE | 2021-09-22 11:20 | DS.PCM_ITS ---
Providers Date of Admission: 09/19/21 Primary Care Physician: [place] Hospital Consultations 09/19/21 18:09 Consult: Hospitalist Routine Consulting Provider: [facility] Reason for Consult: post op med management EMERGENT Consult: No Notified: Yes Date Notified: 09/19/21 Time Notified: 18:09 Method of Notification: Verbal Consult: Infectious Disease Routine Consulting Provider: Richard Perez Reason for Consult: r knee pji EMERGENT Consult: No Notified: Yes Date Notified: 09/20/21 Time Notified: 06:40 Method of Notification: Answering Service Reason For Visit: RT KNEE PJI Diagnosis Discharge Diagnosis (1) 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: Status: Acute Code(s): Z98.890 - Other specified postprocedural states; Z86.19 - Personal history of other infectious and parasitic diseases (2) Infection of total right knee replacement: Status: Acute Code(s): T84.53XA - Infection and inflammatory reaction due to internal right knee prosthesis, initial encounter Medications at Discharge Home Medications albuterol sulfate [Ventolin HFA] 1 - 2 puff INHALATION Q6H PRN PRN 06/20/13 hydrochlorothiazide 25 mg PO DAILY 06/20/13 omeprazole 20 mg PO BID 06/20/13 potassium chloride [Klor-Con M20] 20 meq PO DAILY 06/20/13 tamsulosin 0.8 mg PO QHS 06/20/13 pravastatin 80 mg PO DAILY 10/24/13 montelukast 10 mg PO DAILY 02/10/15 metoprolol tartrate 12.5 mg PO BID 02/11/15 loratadine [Allergy Relief (loratadine)] 10 mg PO DAILY 07/29/15 finasteride 5 mg PO DAILY 02/15/18 guaifenesin 400 mg PO Q4H PRN PRN 02/15/18 Asmanex HFA 2 puff INHALATION BID 07/25/21 Stiolto Respimat 2 puff INHALATION DAILY 07/25/21 celecoxib 200 mg PO DAILY 07/25/21 cholecalciferol (vitamin D3) [Vitamin D3] 50 mcg PO DAILY 07/25/21 fluticasone propionate 1 spray INTRANASAL DAILY 07/25/21 multivitamin 1 tab PO DAILY 07/25/21 pregabalin 150 mg PO BID 07/25/21 amlodipine 10 mg PO QHS 09/16/21 ascorbic acid (vitamin C) [Vitamin C] 500 mg PO DAILY 09/16/21 ceftriaxone 2 g IV Q24H #40 ea 09/20/21 vancomycin 2 g IV Q12H 40 Days #80 ea 09/20/21 acetaminophen 1,000 mg PO TID #0 tab 09/22/21 aspirin 81 mg PO BID #0 tab 09/22/21 ondansetron HCl 4 mg PO Q8H #20 tab 09/22/21 oxycodone 5 - 10 mg PO Q4H PRN PRN 5 Days #60 tab 09/22/21 sennosides-docusate sodium [Stool Softener-Stimulant Laxat] 2 tab PO BID #20 tab 09/22/21 Hospital Course Operations - (Right knee explant total knee arthroplasty with placement of antibiotic spacer) Summary of Care Provided Hospital Course: Patient is a 71-year-old male who underwent a previous right total knee arthroplasty in November 2020 followed by an extensor mechanism repair in April 2021. Patient has had ongoing pain and slow recovery after the second procedure. However he was overall doing well. Patient had COVID-19 in the middle of July 2021 followed by pneumonia at the end of July 2021. He started to have increased pain approximately 2 to 3 weeks ago. X-rays did show concerns of areas of lucency. Aspiration of the knee was done which did show Staphylococcus. After failing conservative measures, the patient opted to proceed with a right knee explant total knee arthroplasty with placement of antibiotic spacer. The patient underwent the above-stated procedure on 09/19/2021. Patient did receive perioperative antibiotics. Intraoperatively was uneventful. For details please see dictated operative note. The patient was placed in thigh-high teds, bilateral SCDs, remained stable in recovery. Patient was admitted to the 3rd floor at [facility]. The patient's pain was managed with the use of IV and p.o. pain medications. Patient was followed by infectious disease in the hospital. Cultures which were obtained during surgery have remained with no growth. They will continue to follow these cultures over 14 days. He will follow-up with infectious disease 2 weeks postoperatively. He has been sent home with IV antibiotics for 6 weeks currently on ceftriaxone and vancomycin. Patient participated in physical therapy. Patient was discharged on postoperative day #3 to home with home health care. Patient was given medications stated below. Patient will follow up with [facility] per postop instructions for reassessment. Weight / BMI Weight Weight: 100.6 kg Body Mass Index (BMI) 28.4 ABG / Lab / Microbiology Data Result Diagrams: 09/21/21 06:20 09/20/21 05:26 Laboratory: Laboratory Results - last 24 hr 09/21/21 10:40: Vancomycin Trough 15.1 H Microbiology: Microbiology 09/19/21 Unknown Tissue - Other Gram Stain - Final 09/19/21 Unknown Tissue - Other Wound Culture - Preliminary No growth-Final to follow 09/19/21 Unknown Tissue - Other Anaerobic Culture - Preliminary No growth in 48 hours. 09/19/21 Unknown Tissue - Other Gram Stain - Final 09/19/21 Unknown Tissue - Other Wound Culture - Preliminary No growth-Final to follow 09/19/21 Unknown Tissue - Other Anaerobic Culture - Preliminary No growth in 48 hours. 09/19/21 Unknown Tissue - Other Gram Stain - Final 09/19/21 Unknown Tissue - Other Wound Culture - Preliminary No growth-Final to follow 09/19/21 Unknown Tissue - Other Anaerobic Culture - Preliminary No growth in 48 hours. D/C Instructions Discharge Diet: No restrictions May shower in (days): 1 (Please turn dressing away from water. Okay to get wet as long as dressing is intact to skin.) Ice area for (Minutes): 20 (Every 1-2 hours while awake. Please place barrier between the skin and ice pack.) Weight Bearing Status: Toe touch weight bearing Keep extremity elevated above heart level: Operative Extremity Call your doctor if your incision/area has: Continuous Slow Oozing, Sudden Increased Bleeding, Increased Pain/ Swelling, Increased Redness and Foul Smelling Discharge Call your doctor if you observe: Fever of 101 or Higher, Coldness, Increased Pain, Numbness or Tingling, Change in Color, Shortness of breath, Chest pain, Calf discomfort and Uncontrolled pain Additional Dressing/Incision Instructions: Follow [facility] Post-op Instructions. Once postoperative dressing has been removed only use gentle soap and water over the incision. Do not use any ointments, Neosporin, salves, alcohol pads over the incision for 6 weeks postoperatively. Do not submerge underwater for 6 weeks postoperatively. Continue with MAURO hose/elastic stockings for 2 weeks postoperatively. May remove at nighttime but needs to be placed back on the leg during the day. Continue with knee immobilizer while up and walking. Can open up the knee immobilizer for ice purposes only. Should sleep with the knee immobilizer on. No range of motion of the right knee. Toe-touch weightbearing on the right lower extremity with walker Do NOT use alcohol with narcotic pain medication. Do NOT make important decisions while taking narcotic medication. If you have problems with taking your medication (rash, itching, nausea, etc.) call the office at once. Meaningful Use Info Meaningful Use Diagnoses (Choose all that apply): None applicable Discharge Plan Admission Admit Date/Time: 09/19/21 12:53 Attending Provider: Poonam García Primary Care Provider: [facility],[place] Consulting Providers: Sabrina Vanessa ; Shelbi Meek ; Collins Flores ; Dinesh Kearns ; Mykel Hall ; Richard Perez Discharge Orders/Prescriptions Prescriptions: New ceftriaxone 2 gram recon soln 2 g IV Q24H Qty: 40 RF: 0 vancomycin 1,000 mg recon soln 2 g IV Q12H 40 Days Qty: 80 RF: 0 acetaminophen 500 mg Tablet 1,000 mg PO TID Qty: 0 RF: 0 aspirin 81 mg Tablet,Chewable 81 mg PO BID Qty: 0 RF: 0 oxycodone 5 mg Tablet 5 - 10 mg PO Q4H PRN PRN (Reason: Pain Score 4-10) 5 Days Qty: 60 RF: 0 sennosides-docusate sodium [Stool Softener-Stimulant Laxat] 8.6-50 mg Tablet 2 tab PO BID Qty: 20 RF: 0 ondansetron HCl 4 mg tablet 4 mg PO Q8H Qty: 20 RF: 0 Continued potassium chloride [Klor-Con M20] 20 MEQ tablet 20 meq PO DAILY RF: 0 tamsulosin 0.4 MG capsule 0.8 mg PO QHS RF: 0 omeprazole 20 MG capsule 20 mg PO BID RF: 0 hydrochlorothiazide 25 MG tablet 25 mg PO DAILY RF: 0 albuterol sulfate [Ventolin HFA] 1 INHALER inhaler 1 - 2 puff inhalation Q6H PRN PRN (Reason: Shortness Of Breath) RF: 0 pravastatin 20 MG tablet 80 mg PO DAILY RF: 0 montelukast 10 MG tablet 10 mg PO DAILY RF: 0 metoprolol tartrate 25 MG tablet 12.5 mg PO BID RF: 0 loratadine [Allergy Relief (loratadine)] 10 MG tablet 10 mg PO DAILY RF: 0 finasteride 5 MG tablet 5 mg PO DAILY RF: 0 guaifenesin 400 MG tablet 400 mg PO Q4H PRN PRN (Reason: Congestion) RF: 0 multivitamin Tablet 1 tab PO DAILY RF: 0 celecoxib 200 mg Capsule 200 mg PO DAILY RF: 0 fluticasone propionate 50 mcg/actuation [place],Suspension 1 spray INTRANASAL DAILY RF: 0 pregabalin 150 mg Capsule 150 mg PO BID RF: 0 cholecalciferol (vitamin D3) [Vitamin D3] 50 mcg (2,000 unit) Capsule 50 mcg PO DAILY RF: 0 Asmanex HFA 200 mcg/actuation Hfa Aerosol Inhaler 2 puff INHALATION BID RF: 0 Stiolto Respimat 2.5-2.5 mcg/actuation Mist 2 puff INHALATION DAILY RF: 0 ascorbic acid (vitamin C) [Vitamin C] 500 mg Tablet 500 mg PO DAILY RF: 0 amlodipine 10 MG tablet 10 mg PO QHS RF: 0 Discontinued tramadol 50 MG tablet 50 mg PO Q8H PRN PRN (Reason: Pain) RF: 0 meloxicam 7.5 MG tablet 7.5 mg PO BID RF: 0 Referrals / Follow Up: Saroj Delgado PA-C [PHYSICIAN DIRECT ENTRY MIDWIFE] - 10/03/21 10:00 am [facility],[place] [Primary Care Provider] - Disposition Disposition (needs filled in before D/C Order can be placed): Home Health Service
[2021-09-22 13:33] VITALS: PULSE 87; RESP 18
--- NOTE | 2021-09-22 13:54 | CASEMGMT ---
Addendum entered by Pam Bell 09/22/21 14:48: Nurse spoke with pharmacy regarding when the earliest to give vanc for this evening. RN CM into pt room to make patient aware next dose is at 10pm, pt asks if they can go home and start in the am. Pt states she is not a night person. ID ok with dose skipped if resumes in the morning. Pt and nurse aware. Original Note: Faxed dc instuctions and summary to [facility] as well as [facility]. TC to [facility], spoke with [place]em[facility] to make aware pt will dc today. TC to [facility], spoke with [place] they are planning on a SOC in the morning.
--- NOTE | 2021-09-22 14:11 | PCM.PN.HOSP ---
Subjective Subjective No issues overnight. Patient remained stable. No significant pain complaints. Plans antibiotics have been finalized and right upper extremity PICC is in place. Probable discharge later today. Objective Data Objective Data Vital Signs: Vital Signs Temp Pulse Resp BP Pulse Ox 98.3 F 87 18 122/69 H 95 09/22/21 08:44 09/22/21 13:33 09/22/21 13:33 09/22/21 08:44 09/22/21 08:44 Oxygen Flow Rate (L/min) 2 Oxygen Delivery Method Room Air Weight: 100.6 kg Body Mass Index (BMI) 28.4 Intake & Output: Intake and Output for Last 24 Hours 09/20/21 09/21/21 09/22/21 23:59 23:59 23:59 Intake Total 4170 / 4170 1930 / 2170 1070 / 1070 Output Total 2400 / 2400 1600 / 2375 2225 / 2225 Balance 1770 / 1770 330 / -205 -1155 / -1155 Lab / Micro Data Result Diagrams: 09/21/21 06:20 09/20/21 05:26 Micro: Microbiology 09/19/21 Unknown Tissue - Other Gram Stain - Final 09/19/21 Unknown Tissue - Other Wound Culture - Preliminary No growth-Final to follow 09/19/21 Unknown Tissue - Other Anaerobic Culture - Preliminary No growth in 48 hours. 09/19/21 Unknown Tissue - Other Gram Stain - Final 09/19/21 Unknown Tissue - Other Wound Culture - Preliminary No growth-Final to follow 09/19/21 Unknown Tissue - Other Anaerobic Culture - Preliminary No growth in 48 hours. 09/19/21 Unknown Tissue - Other Gram Stain - Final 09/19/21 Unknown Tissue - Other Wound Culture - Preliminary No growth-Final to follow 09/19/21 Unknown Tissue - Other Anaerobic Culture - Preliminary No growth in 48 hours. Physical Exam Const alert, oriented x3, no apparent distress, healthy appearing and well nourished Constitutional Narrative: Overweight white male sitting up in a chair at the bedside, right knee is currently out of his immobilizer, therapy is currently there to work with the patient, patient appears comfortable and nontoxic Exam Limitations: no limitations Nutritional Appearance: overweight HEENT head/scalp atraumatic and moist oral mucous membranes Head and Scalp: normocephalic Resp normal respiratory effort, no retractions, no use of accessory muscles and clear to auscultation bilaterally Auscultation: Negative for crackles, rales, rhonchi or wheezes Cardio regular rate, regular rhythm, S1 normal heart sound, S2 normal heart sound, no murmurs, no rub, no gallops, no clicks and no JVD GI normal to inspection, nondistended, normoactive bowel sounds, soft to palpation, non-tender and non-distended Extremity no clubbing, cyanosis or edema Extremity Narrative: Right lower extremity immobilizer Peripheral Pulses: Yes pulses 2+ throughout Neuro oriented x3 and no focal motor deficits Sensorium / Orientation: awake and alert Speech: speech normal Assessment & Plan Assessment/Plan (1) Infection of total right knee replacement: (2) 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 twice daily for 30 days for postop DVT prophylaxis per primary service -Continue DM immobilizer with toe-touch weightbearing only -Ice as needed -Physical therapy for gait training -Bowel regimen -Pain management per primary service -ID is following and PICC order was placed as patient will need 6 weeks of IV antibiotics at discharge -Currently on Vanco/ceftriaxone will continue until cultures are finalized -Factious disease has asked micro to hold the lab cultures for 14 days -Patient will need ID follow-up in 2 weeks after discharge Essential hypertension -Continue to monitor -Continue home amlodipine, hydrochlorothiazide, metoprolol BPH -Continue home tamoxifen, finasteride GERD -Continue home omeprazole COPD -Continue home inhalers -Continue current nebulizers DVT prophylaxis -Aspirin 81 mg p.o. twice daily per primary service Dispo: Patient is okay from medical standpoint for discharge home Charges/Coding Visit Charges Inpatient E&M: 49492 Subs Hosp L2
[2021-09-22 14:26] VITALS: BP 145/82; PULSE 75; RESP 18; TEMP 36.8; O2SAT 95
== END 2021-09-22 17:00 | disposition home health service (06) | DRG 487 ==
LOC: ACINP 13:15 → MS3 09-20 07:05
PROVIDERS: Admitting Provider Specialist; Visit Provider Internal Medicine
PROC: 0SRC0EZ Replacement of Right Knee Joint with Articulating Spacer, Open Approach (ICD-10-PCS; CPT 27301; principal; 2021-09-19 14:35)
DX: M00.061 Staphylococcal arthritis, right knee (principal); B95.8 Unspecified staphylococcus as the cause of diseases classified elsewhere; E11.9 Type 2 diabetes mellitus without complications; E78.00 Pure hypercholesterolemia, unspecified; E66.3 Overweight; J44.9 Chronic obstructive pulmonary disease, unspecified; I10 Essential (primary) hypertension; N40.0 Benign prostatic hyperplasia without lower urinary tract symptoms; K21.9 Gastro-esophageal reflux disease without esophagitis; Z79.82 Long term (current) use of aspirin; Z79.899 Other long term (current) drug therapy; Z79.51 Long term (current) use of inhaled steroids; Z96.651 Presence of right artificial knee joint; Z86.16 Personal history of COVID-19; Z87.01 Personal history of pneumonia (recurrent); Z68.28 Body mass index [BMI] 28.0-28.9, adult
CPT/HCPCS: 36415; 36569; 73560; 80048; 80202; 82962; 85027; 87015; 87070; 87075; 87102; 87116; 87176; 87205; 87206; 94640; 94762; 97110; 97116; 97162; 97166; 97530; 97535; 99251; C1776; J7040; J7120; A4216; G0463; J0696; J2405; J3260

== ENCOUNTER 2021-11-03 09:50 | Outpatient (CLI) | payer MEDICARE, SELFPAY ==
[2021-11-03 11:01] LABS: Absolute Lymphocyte Count 1.95 X10^3/uL (0.83-4.51); Absolute Neutrophil Count 3.6 X10^3/uL (2.0-7.7); Basophil# 0.04 X10^3/uL; Basophil% 0.6 % (0-1); Eosinophil# 0.18 X10^3/uL; Eosinophils% 2.8 % (0-5); Hematocrit 39.3 % (40-54); Hemoglobin 12.8 g/dL (13.0-16.5); Lymphocyte # 1.95 X10^3/ul (0.83-4.51); Lymphocyte % 30.3 % (19-41); Mean Corp Hgb Conc 32.6 g/dL (32-36); Mean Corpuscular Hgb 25.6 pg (27.0-32.0); Mean Corpuscular Volume 78.6 fL (80-94); Mean Platelet Vol. 10.5 fl (6.2-12.0); Monocyte# 0.63 X10^3/uL; Monocyte% 9.8 % (0-10); NRBC Flagged by Analyzer 0 % (0-5); Neutrophil # 3.61 X10^3/uL (2.7-7.7); Neutrophil % 56.2 % (47-70); Platelet Count 237 K/mm3 (150-450); RBC Distribution Width CV 14.6 % (11.6-14.6); RBC Distribution Width SD 40.7 fl (35.1-43.9); White Blood Count 6.4 K/mm3 (4.4-11.0)
[2021-11-03 11:23] LABS: CRP 3.21 mg/L (0.0-3.0)
[2021-11-03 23:54] LABS: Erythrocyte Sedimentation Rate < 1 mm/hr (0-20)
== END 2021-11-03 23:59 | disposition home or self-care (01) ==
LOC: LAB 09:51
PROVIDERS: Referring Provider Specialist; Visit Provider Specialist
DX: T84.53XD Infection and inflammatory reaction due to internal right knee prosthesis, subsequent encounter (principal)
CPT/HCPCS: 36415; 85025; 85652; 86140

== ENCOUNTER 2021-11-17 15:27 | Outpatient (CLI) | payer MEDICARE, SELFPAY ==
[2021-11-17 16:26] LABS: Absolute Lymphocyte Count 2.32 X10^3/uL (0.83-4.51); Absolute Neutrophil Count 4.1 X10^3/uL (2.0-7.7); Basophil# 0.04 X10^3/uL; Basophil% 0.5 % (0-1); Eosinophils% 2.7 % (0-5); Hematocrit 37.9 % (40-54); Hemoglobin 12.8 g/dL (13.0-16.5); Lymphocyte # 2.32 X10^3/ul (0.83-4.51); Lymphocyte % 31.1 % (19-41); Mean Corp Hgb Conc 33.8 g/dL (32-36); Mean Corpuscular Hgb 27.1 pg (27.0-32.0); Mean Corpuscular Volume 80.1 fL (80-94); Monocyte# 0.74 X10^3/uL; Monocyte% 9.9 % (0-10); NRBC Flagged by Analyzer 0 % (0-5); Neutrophil # 4.13 X10^3/uL (2.7-7.7); Neutrophil % 55.5 % (47-70); Platelet Count 247 K/mm3 (150-450); RBC Distribution Width CV 14.7 % (11.6-14.6); Red Blood Count 4.73 M/mm3 (4.6-6.2); White Blood Count 7.5 K/mm3 (4.4-11.0)
[2021-11-17 17:01] LABS: CRP 4.15 mg/L (0.0-3.0)
[2021-11-17 17:08] LABS: Erythrocyte Sedimentation Rate 2 mm/hr (0-20)
== END 2021-11-17 23:59 | disposition home or self-care (01) ==
LOC: LAB 15:28
PROVIDERS: Visit Provider Specialist
DX: T84.53XD Infection and inflammatory reaction due to internal right knee prosthesis, subsequent encounter (principal)
CPT/HCPCS: 85025; 85652; 86140

== ENCOUNTER → 2024-07-16 | Outpatient (CLI) | payer MEDICARE, SELFPAY ==
--- NOTE | 2024-07-16 13:26 | NEURO ---
NCS and/or EMG Patient Report Ordering Doctor: Cornelio Ochoa DATE OF SERVICE: 07/16/24 Hrenesto presents with complaints of low back pain. He also reports numbness and tingling in both legs. He reports poor balance. Electrodiagnostic findings: Peroneal and tibial motor responses could not be obtained. Sensory responses were not obtainable. H-reflex is prolonged bilaterally. Needle EMG testing was performed in the lower limbs. Motor units of increased amplitude and duration noted bilaterally in the gastrocnemius. No acute denervation noted in any muscles tested. No denervation noted in the lumbar paraspinals. Electrodiagnostic impression: This is an abnormal study. 1. 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 2 2. There is no electrodiagnostic evidence for lumbosacral radiculopathy Multi Select Codes Neurology Neurology Interp Codes: 72046-56 Musc test done w/n test comp (interp) (2) and 34931-62 Nrv cndj test 9-10 studies (interp)
== END | disposition home or self-care (01) ==
LOC: PSN 06:54
PROVIDERS: Referring Provider Orthopaedic Surgery; Visit Provider Orthopaedic Surgery
DX: M48.061 Spinal stenosis, lumbar region without neurogenic claudication (principal); M47.896 Other spondylosis, lumbar region; R20.2 Paresthesia of skin
CPT/HCPCS: 95886; 95911

== ENCOUNTER → 2024-09-01 | Outpatient (CLI) | payer MEDICARE, SELFPAY ==
--- NOTE | 2024-09-01 09:00 | MRI_ITS ---
STUDY: MRI CERVICAL SPINE WITHOUT CONTRAST REASON FOR EXAM: Male, 74 years old. pain TECHNIQUE: Standardized fat and water weighted pulse sequences were obtained in the sagittal and axial planes. COMPARISON: October 24, 2013 FINDINGS: Normal foramen magnum and brainstem-cervical cord junction. Normal craniovertebral junction. Normal anterior atlantoaxial articulation. Normal odontoid process. Straightening of normal lordotic curvature which may be due to muscle spasm or positioning artifact. Normal vertebral bodies and posterior osseous elements. C2-3: Normal endplates. Normal disc height, signal and morphology. Normal central canal and intervertebral neural foramina. C3-4: Narrowed disc space with minor bulging of the disc and right posterolateral/foraminal disc/osteophyte complex. Mild narrowing of the central canal. Mild narrowing of the left lateral recess and severe narrowing on the right C4-5: Status post bilateral laminectomy and fusion.. Normal central canal and intervertebral neural foramina. C5-6: Status post bilateral laminectomy.. Anterior endplate spurring with desiccation of the disc and minor bulging disc osteophyte complex Normal central canal and moderate to severe bilateral neural foraminal stenosis C6-7: [Status post bilateral laminectomy Anterior endplate spurring . Narrowed disc space and minor bulging disc osteophyte complex Normal central canal and mild bilateral neural foraminal encroachment C7-T1: Status post bilateral laminectomy. Normal endplates. Normal disc height, signal and tiny central disc protrusion.. Normal central canal and intervertebral neural foramina. Normal cervical cord. Normal visualized soft tissue structures. There is been slight interval progression of the degenerative changes since prior exam most pronounced at C3-4 MRI/Spine Cervical (Routine) IMPRESSION: . Status post multilevel laminectomy and moderate spondylosis. Multilevel neural foraminal stenosis secondary to disc and bony hypertrophy most severe on the right at C3-C4 and bilaterally at C5-6 with findings as above Electronically Signed: Cornelio Brewer MD at 16:47 EST Reading Location ID and State: [facility] / [place] Tel , Service support ,
== END | disposition home or self-care (01) ==
PROVIDERS: Referring Provider Orthopaedic Surgery Orthopaedic Surgery of the Spine; Visit Provider Orthopaedic Surgery Orthopaedic Surgery of the Spine
DX: G95.9 Disease of spinal cord, unspecified (principal)
CPT/HCPCS: 72141

== ENCOUNTER 2024-09-08 14:00 | Outpatient (RCR) | payer MEDICARE, SELFPAY ==
--- NOTE | 2024-08-12 14:46 | HP.PTEVAL_ITS ---
Patient's Visit Information Visit Information Visit Information: DWASON MIGUEL is a 74 year old M referred to Physical Therapy by Dr. Timmy De La Rosa MD with a diagnosis of LUMBAR DDD. Date of Evaluation: 08/12/24 Physical Therapist: Yolande Condon PT, Cert MDT Visit Plan Frequency: 2-3x /Week Duration: 4-6 Months Plan: Neutral Spine Core Stability Exercises and Clif LE Hip Flexor, Hamstring and Calf Stretching to help reduce stress to the Lumbar Spine with all Daily Activities. Clif LE Strengthening. Gait and Balance Training. Instruction in Proper Posture Control, Body Mechanics, and Appropriate Activity Modifications. HEP and/or water ex Instruction. PT to include land and/or aquatic exercise. Subjective Subjective: Work/Leisure: RETIRED. Present symptoms: CLIF LOW BACK AND LEG PAIN. INTERMITTENT CLIF LE NUMBNESS AND TINGLING DOWN LEGS INTO FEET R>L. Present since: CHRONIC LBP WORSENING X 3 MONTHS UNTIL A FEW WEEKS AGO. LBP HAS IMPROVED OVER THE LAST FEW WEEKS FOR NO APPARENT REASON. Pain Scale: WORST 6/10, LEAST 0/10 Currently: 2/10 Is it getting better, worse or staying the same: GETTING BETTER Commenced as a result of: NO APPARENT REASON Worse: A LOT OF WALKING, TREADMILL, STANDING*, LIGHT HOUSEWORK, DISHES, LAUNDRY, STEPS Better: SITTING, PAIN MEDICINE Disturbed sleep: NO Previous history/Previous treatment: NO BACK SURGERY, PT OR INJECTIONS Treatment this episode: PT AND PAIN MGMT REFERRALS Coughing/sneezing/straining: NEGATIVE FOR INCREASED PAIN. Gait: USING CANE SINCE LAST KNEE SURGERY APR 2024. STATES USES THE CANE DUE TO LEGS BEING WEAK AND GIVING OUT ON HIM AT TIMES. ONE EASY FALL REPORTED WHEN WENT HOME FROM HOSPITAL AFTER KNEE SURGERY - I DIDN'T HURT ANYTHING. STATES LEGS GAVE OUT DUE TO BEING REALLY WEAK. Bowel or Bladder Dysfunction: NO Unexplained weight loss: NO Imaging: PER DR. DE LA ROSA'S RECENT NOTE: Lumbar xrays shows multilevel disc height loss with L4-5 and L5-S1 vacuum phenomenon on extension. Lumbar MRI shows multilevel disc height loss with disc degeneration with disc bulges causing severe foraminal stenosis especially from L2-S1 bilaterally. PMH/Recent major surgery: 5 R KNEE SURGERIES, 2 L KNEE SURGERIES. 2 NECK SURGERIES. L THR WITH RECENT PROBLEMS AND ANOTHER SX RECOMMENDED BY ONE SURGEON. OTHER: PATIENT REPORTS DR. DE LA ROSA IS NOT RECOMMENDING PT AT THIS TIME. PT AND PAIN MGMT RECOMMENDED. AWAITING PAIN MGMT TYRA'T. MRI ORDERED FOR NECK - AWAITING TYRA'T. FOLLOW UP FOR L HIP WITH DR. NARANJO PENDING TOMORROW. PATIENT REPORTS HE DOES HIS HOME EX'S FROM PT ALMOST EVERYDAY FOR HIS LEGS AND HE IS GETTING STRONGER SLOWLY BUT STILL CAN'T GET UP STAIRS WITHOUT A HANDRAIL AND STILL HAS TO USE HIS ARMS TO GET UP OUT OF A CHAIR. Objective Objective: Sitting/Standing Posture: SLOUCHED IN SITTING. DECREASED LORDOSIS IN STANDING. RIGHT ILIAC CREST SLIGHTLY HIGHER THAN L IN STANDING. Other Observations: THIS PATIENT AMBULATES INDEP'LY INTO PT WITH A STRAIGHT CANE, DECREASED CADANCE, DECREASED CLIF STRIDE LENGTH, CLIF TOEING OUT AND NO LOB. INDEP TRANSFERS SIT TO STAND WITH UE ASSIST BUT HE IS UNABLE TO TRANSFER SIT TO STAND WITHOUT UE ASSIST. INDEP TRANSFERS SIT TO SUPINE AND REVERSE BUT UE ASSIST RREQUIRED TO ASSIST LLE WITH TRANSFER SIT TO SUPINE. Sensory deficit: CLIF LE LIGHT TOUCH SENSATION GROSSLY INTACT AND SYMMETRICAL. ROM deficit: R KNEE ROM IN LYING 10-0-123 degrees. L KNEE ROM IN LYING 12-0-112 degrees. DECREASED CLIF HIP ROM L>R. CLIF HS AND GASTROC-SOLEUS TIGHTNESS . Motor deficit: R LE: HIP FLEX 4/5, ABD 4-/5, EXT 3+/5, KNEE EXT 3-/5, KNEE FLEX 4/5, ANKLE 4/5. L LE: HIP FLEX 3-/5, KNEE EXT 2+/5, KNEE FLEX 3-/5, ANKLE 4/5. Dural Signs: POSITIVE LLE. Lumbar mvmt loss: flex - MOD - INCREASES LBP - NW ext - UMESH - INCREASES LBP - NW R SG - UMESH - INCREASES LBP - NW L SG - UMESH - INCREASES LBP - NW Core strength: POOR OTHER: PATIENT IS ONLY ABLE TO SLS AND TANDEM STANCE WITH EA LE X 2-3 SEC EA WITHOUT UE ASSIST. Balance/Special Test Scores Oswestry Low Back Score: 19 Goals Goal 1:: DECREASE C/O LOW BACK AND CLIF LE SX'S BY AT LEAST 50% TO EASE ADL'S. Goal Time Frame: 4-6 Weeks Goal 2:: IMPROVE LIFTING, WALKING, STANDING AND WORK/HOMEMAKING FUNCTION WITH AT LEAST 5 POINT IMPROVEMENT IN LUMBAR OSWESTRY SCORE. Goal Time Frame: 4-6 Weeks Goal 3:: PATIENT WILL BE INDEP IN LAND AND/OR WATER EX PROGRAMS FOR TRUNK AND LE STRETCHING AND STRENGTHENING. Goal Time Frame: 4-6 Weeks Rehabilitation Potential Physical Therapy Diagnosis: CORE WEAKNESS AND STIFFNESS, LE WEAKNESS AND STIFFNESS (L>R) AND DIFFICULTY WITH GAIT. Rehabilitation Potential: Fair Anticipated Interventions Patient/Client Instruction: Educate patient on: Condition, Plan of Care and Risk Factors For the Purpose of:: To improve self management Therapeutic Exercise to Include: Strength training, Balance training, Body mechanics, Postural training, Flexibilty training, Gait and locomotor training, Neuromotor development, In an aquatic setting and Dynamic Lumbar Stabilization For the Purpose of:: To decrease pain, To improve muscle performance and motor function, To increase tolerance to activity/condition/position, To improve ability of physical actions for home/community/work/leisure, To improve gait and locomotor functions and To increase flexibility/ROM Text: Thank you for the opportunity to evaluate your patient. For Medicare and Medicare HMO plans, please review the plan of care and approve it. It will need to be FAXED BACK to us at [phone] for Medicare purposes. For Medicare only, by signing this I certify the plan of care. Please let me know if there are questions or concerns regarding this plan of care. Physician Signature: Date:
--- NOTE | 2024-09-08 14:46 | HP.PTDCSUM_ITS ---
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 Timmy Treadwell MD, with the diagnosis of LUMBAR DDD for a total of 7 visit(s). Discharge Date: 09/08/24 Please see the following information for a summary of their discharge status. Subjective Subjective: PATIENT REPORTS HIS LOW BACK PAIN IS IMPROVING. I CAN DO THINGS AROIUND THE HOUSE QUITE A BIT LONGER NOW AND THE PAIN DOESN'T GET BAD. I CLEANED THE KITCHEN FOR AN HOUR AND A HALF INCLUDING SCRUBBING PAINS AND IT DIDN'T REALLY BOTHER ME. PATIENT REPORTS HE HAS ALSO BEEN WALKING FASTER ON THE TREADMILL AT THE [facility] WITH BETTER STRIDE BUT AFTER ABOUT 15 MIN IT GIVES OUT AND GETS BURNY ABOUT 1-2/10. HE REPORTS HIS LOW BACK IS DEFINATLEY GETTING BETTER. STATES HE THINKS HIS LOW BACK IS THE LEAST OF HIS PROBLEMS RIGHT NOW. HAD MRI OF HIS NECK AND HAS TYRA'T TO GO OVER THAT WITH DR. TREADWELL TOMORROW. PATIENT REPORTS HE WAS SURPRISED HOW MUCH OF A WORKOUT HE COULD GET IN THE POOL AND HE WILL PROBABLY USE THE EX'S HE LEARNED AT THE . STILL GETTING NUMBESS IN R FOOT AND LOWER LEG. Pain LOW BACK: Pain Intensity (Out of 10): 2 L KNEE: Pain Intensity (Out of 10): 0 R KNEE: Pain Intensity (Out of 10): 0 Neck: Pain Intensity (Out of 10): 3 Overall Improvement % Improvement: 60 Objective Objective/Function: PATIENT WAS SEEN TODAY FOR RE-ASSESSMENT OF PROGRESS TOWARD THE SET PT GOALS AND THE NEED FOR FURTHER PHYSICAL THERAPY VS READINESS FOR DISCHARGE. HAS HAS MADE GOOD PROGRESS WITH PT AND IS INDEP WITH EX PROGRAMS NOW FOR THE [facility]. HE WOULD LIKE TO BE DISCHARGED. UPON EXAM TODAY: TRANSFERS: SIT TO STAND WITH ONE UE ASSIST. PATIENT IS NOW ABLE TO INDEP GET HIS LEFT LEG ONTO THE BED WHEN TRANSFERRING SIT TO SUPINE TO HIS LEFT BUT NEEDS JUST A LITTLE UE ASSIST WITH LLE WHEN TRANSFERRING SIT TO SUPINE TO HIS RIGHT. Sensory deficit: CLIF LE LIGHT TOUCH SENSATION GROSSLY INTACT AND SYMMETRICAL. ROM deficit: R KNEE ROM IN LYING 0-0-130 degrees. L KNEE ROM IN LYING 3-0-125 degrees. DECREASED CLIF HIP ROM L>R. CLIF HS AND GASTROC-SOLEUS TIGHTNESS. Motor deficit: R LE: HIP FLEX 4/5, ABD 4/5, EXT 4-/5, KNEE EXT 3+/5, KNEE FLEX 4/5, ANKLE 4/5. L LE: HIP FLEX 3+/5, HIP ABD 3-/5. KNEE EXT 3-/5, KNEE FLEX 3+/5, ANKLE 4/5. Dural Signs: NEGATIVE R LE NOW (WAS POSITIVE AT EVAL). Lumbar mvmt loss: flex - MOD - INCREASES LBP - NW ext - UMESH - P POST THIGH AND UPPER BACK PAIN - NW R SG - MOD - INCREASES R LBP - NW L SG - MOD - INCREASES L LBP - NW Core strength: FAIR OTHER: PATIENT IS NOW ABLE TO SLS AND TANDEM STANCE WITH EA LE X 8-10 SEC EA WITHOUT UE ASSIST. Goals Goal 1:: DECREASE C/O LOW BACK AND CLIF LE SX'S BY AT LEAST 50% TO EASE ADL'S. Goal Progress: Goal Met Goal 2:: IMPROVE LIFTING, WALKING, STANDING AND WORK/HOMEMAKING FUNCTION WITH AT LEAST 5 POINT IMPROVEMENT IN LUMBAR OSWESTRY SCORE. Goal Progress: FUNCTIONAL IMPROVEMENT Goal 3:: PATIENT WILL BE INDEP IN LAND AND/OR WATER EX PROGRAMS FOR TRUNK AND LE STRETCHING AND STRENGTHENING. Goal Progress: Goal Met Plan Plan: D/C TO INDEP EX AND FOLLOW UP WITH DR. TREADWELL. D/C Information d/c sentence: If there are questions or concerns regarding this patient's physical therapy, please feel free to call me at [phone]. Thank you for the referral of this patient. Sincerely, Yolande Condon, PT, Cert MDT Balance/Gait/Functional tests Balance/Special Test Scores Oswestry Low Back Score: 21 Improvement % Improvement: 60
== END 2024-09-08 19:00 | disposition home or self-care (01) ==
LOC: PT 14:00
PROVIDERS: Referring Provider Orthopaedic Surgery Orthopaedic Surgery of the Spine; Visit Provider Orthopaedic Surgery Orthopaedic Surgery of the Spine
DX: M51.369 Other intervertebral disc degeneration, lumbar region without mention of lumbar back pain or lower extremity pain (principal)
CPT/HCPCS: 97110; 97113; 97162; 97530

== ENCOUNTER 2024-10-16 12:00 | Outpatient (RCR) | payer MEDICARE, SELFPAY ==
--- NOTE | 2024-09-17 17:30 | HP.PTEVAL_ITS ---
Patient's Visit Information Visit Information Visit Information: DAWSON MIGUEL is a 74 year old M referred to Physical Therapy by Dr. Timmy De La Rosa MD with a diagnosis of CERVICALAGIA. Date of Evaluation: 09/17/24 Physical Therapist: Javier Trimble, PT, Cert MDT, OCS Visit Plan Frequency: 2x /Week Duration: 4 Weeks Plan: PT INTERVENTIONS AQUATIC THERAPY CERVICAL ROM ,STRENGTHENING BUE ,POSTURAL EX'S AND ACTIVITY MODIFICATION Subjective Subjective: This 74 y/o male presents to physical therapy with neck pain. Patient has had cervical pain for many years. Patient has had fusion and laminectomy of his cervical spine which were done in 1989 and [address] Patient [address] De La Rosa but is not a surgical candidate and recommended PT and pain management . Patient medication Tramadol, Lyrica, and Celebrex for pain with PRN Tylenol. Patient was seen in PT for back at in Aquatics . Patient had pain injection for back management. Patient had MRI . Status post multilevel laminectomy and moderate spondylosis.Multilevel neural foraminal stenosis secondary to disc and bony hypertrophy most severe on the right at C3-C4 and bilaterally at C5-6 .Cervical x-rays Osseous vertebral body fusion of C4-5. Moderate to severe discogenic degenerative changes of the other visualized levels.Straightening of the normal cervical lordosis. Patient ahs had several knee surgery TKA by Dr Nunez 5 surgery on right left 2 surgery partial and TKA. Pain located cervical pain occasional right arm. Aggravating factors looking up ,flexion rotation. Alleviating factors heat. Denies CABALLERO/nausea/tinnitus. Patient sleeping okay . Denies paresthesia/tingling. Patient use cane balance. Patient condition affects QOL and gait. Patient has no falls . Patient goals decrease pain. SOCIAL: VOCATION: RETIRED Pain Bilateral Neck: Pain Intensity (Out of 10): 4 Pain Intensity Range: 10 Objective Objective: POSTURE: mild forward posture GAIT: ambulates with cane with mild forward posture slightly unsteady NEURO: denies paresthesia/tingling ,reflexes C5-6-7 2/3 PALAPTION: tender UT/levator CERVICAL ROM: flexion mod loss ,rotation mod/severe loss ,lateral flexion mod/severe loss pain ,extension severe loss MMT: BUE 4/5 SHOULDER 4-/5 Special Tests C/S Radiculapathy - Left Upper limb tension test: Negative C/S Radiculapathy - Right Upper limb tension test: Negative Sharp Arlette: Negative Vertebral Artery Test: Negative Alar Ligament Test: Negative Balance/Special Test Scores Oswestry Neck Score: 20 Goals Goal 1:: Patient to be I with Aquatic therapy and HEP Goal Time Frame: 4-6 Weeks Goal 2:: Patient to improve cervical ROM for function of recovery for driving Goal Time Frame: 4-6 Weeks Goal 3:: Patient to improve neck oswestry score by 2-5 points to improve QOL and function Goal Time Frame: 4-6 Weeks Goal 4:: Patient to demonstrate 40 % improvement with less pain and improved function Goal Time Frame: 4-6 Weeks Rehabilitation Potential Physical Therapy Diagnosis: This patient has cervical pain with h/o cervical surgery 1999 and 2008 with decrease ROM cervical ,decrease posture ,pain and weaakness along with comorbities to influence condition thus benefit from skilled PT Rehabilitation Potential: Good Anticipated Interventions Patient/Client Instruction: Educate patient on: Condition and Plan of Care For the Purpose of:: To decrease pain, To increase ROM, To improve muscle performance and motor function, To improve ability to perform ADL's, To increase tolerance to activity/condition/position, To improve ability of physical actions for home/community/work/leisure, To improve health of tissue, To decrease soft tissue restriction, To increase flexibility/ROM, To reduce risk of recurrence and To improve tolerance to ADL's Therapeutic Exercise to Include: Strength training, Body mechanics, Postural training, In an aquatic setting, Passive ROM and Active ROM Comment: BUE CERVICAL For the Purpose of:: To decrease pain, To decrease swelling/inflammation, To improve muscle performance and motor function, To improve ability to perform ADL's, To increase tolerance to activity/condition/position, To improve ability of physical actions for home/community/work/leisure, To improve health of tissue, To decrease soft tissue restriction, To increase flexibility/ROM and To reduce risk of recurrence TENS: Yes IF ES: Yes Cryotherapy (ice pack, ice massage): Yes Thermo therapy (hot pack): Yes Ultrasound (thermal/non thermal): Yes For the Purpose of:: To decrease pain, To decrease swelling/inflammation, To improve health of tissue and To decrease soft tissue restriction Text: Thank you for the opportunity to evaluate your patient. For Medicare and Medicare HMO plans, please review the plan of care and approve it. It will need to be FAXED BACK to us at [phone] for Medicare purposes. For Medicare only, by signing this I certify the plan of care. Please let me know if there are questions or concerns regarding this plan of ca re. Physician Signature: Date:
--- NOTE | 2024-10-16 12:31 | HP.PTDCSUM ---
Discharge Summary D/C summary: It has been my pleasure to treat DAWSON Encarnacion HUMAN SERVICE SPECIALIST referred by Dr. Timmy De La Rosa MD, with the diagnosis of CERVICALAGIA for a total of 7 visit(s). Discharge Date: 10/16/24 Please see the following information for a summary of their discharge status. Subjective Subjective: Plan to see DR Parson for cervical injection ROM has improved ,conts to pinch with movement Pain Bilateral Neck: Pain Intensity (Out of 10): 5 LBP: Pain Intensity (Out of 10): 3 Overall Improvement % Improvement: 30 Objective Objective/Function: POSTURE: mild forward posture GAIT: ambulates with cane with mild forward posture slightly unsteady NEURO: denies paresthesia/tingling ,reflexes C5-6-7 2/3 PALAPTION: tender UT/levator CERVICAL ROM: flexion min loss ,rotation min/mod ,lateral flexion mod/severe right ,left min/mod loss pain ,extension mod/severe loss MMT: BUE 4/5 SHOULDER 4-/5 Goals Goal 1:: Patient to be I with Aquatic therapy and HEP Goal Progress: Goal Met Goal 2:: Patient to improve cervical ROM for function of recovery for driving Goal Progress: Progressing Goal 3:: Patient to improve neck oswestry score by 2-5 points to improve QOL and function Goal Progress: Progressing Goal 4:: Patient to demonstrate 40 % improvement with less pain and improved function Goal Progress: Progressing Plan Plan: D/C TO HEP D/C Information d/c sentence: If there are questions or concerns regarding this patient's physical therapy, please feel free to call me at [phone]. Thank you for the referral of this patient. Sincerely, Javier Trimble, PT, Cert MDT, OCS Balance/Gait/Functional tests Balance/Special Test Scores Oswestry Neck Score: 20 Improvement % Improvement: 30
== END 2024-10-16 19:00 | disposition home or self-care (01) ==
LOC: PT 12:00
PROVIDERS: Referring Provider Orthopaedic Surgery Orthopaedic Surgery of the Spine; Visit Provider Orthopaedic Surgery Orthopaedic Surgery of the Spine
DX: M54.2 Cervicalgia (principal)
CPT/HCPCS: 97113; 97162; 97530

== ENCOUNTER → 2025-05-12 | Outpatient (CLI) | payer MEDICARE, SELFPAY ==
[2025-05-12 10:35] LABS: Hematocrit 43.0 % (40-54); Hemoglobin 14.7 g/dL (13.0-16.5); Immature Granulocytes Count 0.030 X10^3/uL (0.0-0.0); Mean Corp Hgb Conc 34.2 g/dL (32-36); Mean Corpuscular Volume 87.4 fL (80-94); Mean Platelet Vol. 10.1 fl (6.2-12.0); NRBC Flagged by Analyzer 0 % (0-5); Platelet Count 219 K/mm3 (150-450); RBC Distribution Width CV 13.1 % (11.6-14.6); RBC Distribution Width SD 41.5 fl (35.1-43.9); Red Blood Count 4.92 M/mm3 (4.6-6.2); White Blood Count 6.8 K/mm3 (4.4-11.0)
[2025-05-12 11:50] LABS: CRP 3.74 mg/L (0.0-3.0)
== END | disposition home or self-care (01) ==
LOC: LAB 10:02
PROVIDERS: Referring Provider Specialist; Visit Provider Specialist
DX: S82.032 Displaced transverse fracture of left patella (principal); I10 Essential (primary) hypertension
CPT/HCPCS: 36415; 85025; 85652; 86140